=== PATIENT | male | born 1960 | race Caucasian/White ===

== ENCOUNTER 2016-06-17 12:27 | Emergency (ER) | payer MEDICARE | END 2016-06-17 14:05 | disposition home or self-care (01) | LOC: D.ER 12:27 | DX: K04.7 Periapical abscess without sinus (principal); K02.9 Dental caries, unspecified; K08.89 Other specified disorders of teeth and supporting structures; I10 Essential (primary) hypertension; I25.10 Atherosclerotic heart disease of native coronary artery without angina pectoris ==

== ENCOUNTER 2018-10-25 15:35 | Emergency (ER) | payer MEDICARE ==
[~2018-10-25] VITALS: Ht 180.3 cm; Wt 128.2 kg
[2018-10-25 15:43] VITALS: Ht 180.3 cm; Wt 128.2 kg
[2018-10-25] MEDS ORDERED: LANTUS INSULIN10 ML SC ×2 (15:44)
[2018-10-25] MEDS ORDERED: LISINOPRIL20 MG PO (15:45)
[2018-10-25] MEDS ORDERED: HUMULIN R100 U/ML SC (15:45)
[2018-10-25] MEDS ORDERED: EFFEXOR XR37.5 MG PO (15:46)
[2018-10-25] MEDS ORDERED: TERAZOSIN HCL2 MG PO (15:46)
[2018-10-25] MEDS ORDERED: TYLENOL W/CODEI1 TAB PO (17:42)
[2018-10-25] MEDS ORDERED: PENICILLIN V P500 MG PO (17:42)
== END 2018-10-25 16:30 | disposition home or self-care (01) ==
LOC: D.ER 15:35
DX: K08.89 Other specified disorders of teeth and supporting structures (principal)

== ENCOUNTER 2018-11-08 10:07 | Emergency (ER) | payer MEDICARE, MEDICAID ==
[~2018-11-08] VITALS: Ht 180.3 cm; Wt 127.3 kg
[~2018-11-08 10:07] MED LIST: EFFEXOR XR37.5 MG PO; HUMULIN R100 U/ML SC; LANTUS INSULIN10 ML SC; LISINOPRIL20 MG PO; PENICILLIN V P500 MG PO; TERAZOSIN HCL2 MG PO; TYLENOL W/CODEI1 TAB PO
[2018-11-08 10:16] VITALS: Ht 180.3 cm; Wt 127.3 kg
[2018-11-08] MEDS ORDERED: LANTUS SOL100 UNIT/1 SC (11:15)
[2018-11-08] MEDS ORDERED: NEURONTIN800 MG PO (11:15)
[2018-11-08] MEDS ORDERED: MINIPRESS 5 MG C5 MG PO (11:15)
[2018-11-08] MEDS ORDERED: NORVASC10 MG PO (11:15)
[2018-11-08 11:23] VITALS: BP 175/92
== END 2018-11-08 11:25 | disposition home or self-care (01) ==
LOC: D.ER 10:07
DX: Z76.0 Encounter for issue of repeat prescription (principal)

== ENCOUNTER 2018-12-11 14:31 | Observation (INO) | payer MEDICARE, MEDICAID ==
[~2018-12-11] VITALS: Ht 180.3 cm; Wt 132.0 kg
[~2018-12-11 14:31] MED LIST changes: +LANTUS SOL100 UNIT/1 SC; +MINIPRESS 5 MG C5 MG PO; +NEURONTIN800 MG PO; +NORVASC10 MG PO
--- NOTE | 2018-12-11 15:02 | NUR ---
[facility]S TRAUMA BAND #[id number]
--- NOTE | 2018-12-11 15:05 | NUR ---
PT HAVING TROUBLE BREATHING LYING ON BACK. STATES HE HAS NOT SLEPT IN 4 DAYS.
--- NOTE | 2018-12-11 15:26 | NUR ---
REGIONAL FACILITIES SPECIALIST CALLED FOR MENTAL HEALTH SCREENING
[2018-12-11 15:27] LABS: BASOPHILS 0.4 % (0-2); EOSINOPHILS 3.2 % (0-7); HEMATOCRIT 30.5 % (42.0-54.0); HEMOGLOBIN 9.9 g/dL (13.5-17.5); IMMATURE GRANULOCYTES 0.4 % (0-5); LYMPHOCYTES 16.1 % (15-50); MCHC 32.5 g/dL (31.0-37.0); MCV 83.1 fL (80.0-100.0); MEAN PLATELET VOLUME 9.4 fL (7.4-10.4); MONOCYTES 7.5 % (2-11); NEUTROPHILS 72.4 % (40-80); RBC 3.67 10x6/uL (4.20-6.10); RDW 15.7 % (11.5-14.5); WBC 7.9 10x3/uL (4.8-10.8)
--- NOTE | 2018-12-11 15:34 | NUR ---
URINE SENT TO LAB
[2018-12-11 15:44] LABS: ALBUMIN 2.8 g/dL (3.4-5.0); ANION GAP 12.3 mmol/L (8-16); BILIRUBIN - TOTAL 0.45 mg/dL (0.2-1.3); CALCIUM 8.3 mg/dL (8.5-10.1); CARBON DIOXIDE 27.8 mmol/L (21.0-32.0); CREATININE - SERUM 1.7 mg/dL (0.6-1.3); POTASSIUM - SERUM 4.1 mmol/L (3.5-5.1); PROTEIN - SERUM 6.6 g/dL (6.4-8.2)
[2018-12-11 15:50] LABS: UDS - AMPHET NEGATIVE QUAL (NEGATIVE); UDS - BARB NEGATIVE QUAL (NEGATIVE); UDS - BENZO NEGATIVE QUAL (NEGATIVE); UDS - COCAINE NEGATIVE QUAL (NEGATIVE); UDS - OPIATE NEGATIVE QUAL (NEGATIVE); UDS - PCP NEGATIVE QUAL (NEGATIVE); UDS - THC POSITIVE QUAL (NEGATIVE)
[2018-12-11 15:54] LABS: PLATELET COUNT 146 10x3/uL (130-400)
[2018-12-11 16:01] VITALS: BP 181/74
[2018-12-11 16:31] VITALS: BP 188/99
--- NOTE | 2018-12-11 17:21 | NUR ---
DR REMY NOTIFIED AND SITTER ORDERED. SITTER AT BEDSIDE. NOTIFIED CHARGE NURSE AND ATTENDING IN REGARDS TO ASSESSMENT FINDINGS. RESOURCES GIVEN TO PT AND SAFETY PLAN INITIATED.
--- NOTE | 2018-12-11 17:50 | NUR ---
PT MOVED TO SAFE ROOM ED21 AFTER MENTAL HEALTH EVALUATION DEEMED THE PATIENT HIGH RISK FOR SUICIDE, DISPOSABLE SCRUBS WILL NOT FIT THE PATIENT SO HE WAS CHECKED FOR ANY BELONGINGS, HE HAS NONE, SHOES PLACED BEHIND THE NURSES DESK, RESPIRATIONS EVEN AND UNLABORED, PULSES EQUAL AND STRONG, FOOD TRAY ORDERED FOR PATIENT, SITTER AT BEDSIDE, WILL MONITOR.
--- NOTE | 2018-12-11 18:10 | NUR ---
PT WAS GIVEN A DINNER TRAY, HAS A CELL PHONE IN HIS BED WHICH WAS PLACED WITH HIS SHOES BEHIND THE NURSES STATION. DENIES OTHER NEEDS, WILL MONITOR.
[2018-12-11 18:56] VITALS: BP 202/94
[2018-12-11 20:28] LABS: APTT 27.8 SECONDS (22.8-39.4); PROTIME 12.7 SECONDS (11.6-15.0)
[2018-12-11 20:29] LABS: D-DIMER-QUANTITATIVE 2.72 ug/mLFEU (0.20-0.54)
[2018-12-11 21:02] LABS: CKMB 2.5 U/L (0.0-3.6); CREATINE KINASE 78 UL (21-232); PRO BNP 4222 pg/mL (0-125)
[2018-12-11 21:04] LABS: TROPONIN-I < 0.017 ng/mL (0.000-0.060)
--- NOTE | 2018-12-11 22:00 | NUR ---
PT C/O SOB. REPORTS HE HAS NOT TAKEN LASIX IN 9 DAYS. MD MADE AWARE CARDIAC WORK UP ORDERED PER VERBAL ORDERS.
[2018-12-12] VITALS (13 sets, daily range): BP systolic 146–193; BP diastolic 77–109; Ht 180.3 cm; Wt 132.0 kg
--- NOTE | 2018-12-12 | NUR ---
PT C/O OF INCREASED ANXIETY. SCREAMING AND CUSSING AT NURSING STAFF.
[2018-12-12 04:22] LABS: BASOPHILS 0.3 % (0-2); HEMATOCRIT 34.7 % (42.0-54.0); HEMOGLOBIN 11.1 g/dL (13.5-17.5); IMMATURE GRANULOCYTES 0.3 % (0-5); LYMPHOCYTES 9.4 % (15-50); MCH 26.6 pg (26.0-34.0); MCV 83.2 fL (80.0-100.0); MEAN PLATELET VOLUME 9.8 fL (7.4-10.4); RBC 4.17 10x6/uL (4.20-6.10); RDW 15.8 % (11.5-14.5)
[2018-12-12 04:29] LABS: PLATELET COUNT 197 10x3/uL (130-400); WBC 12.1 10x3/uL (4.8-10.8)
[2018-12-12 04:49] LABS: ALKALINE PHOSPHATASE 101 U/L (46-116); ALT (SGPT) 19 U/L (10-68); BILIRUBIN - TOTAL 0.75 mg/dL (0.2-1.3); CALCIUM 8.9 mg/dL (8.5-10.1); CARBON DIOXIDE 34.1 mmol/L (21.0-32.0); CHLORIDE - SERUM 102 mmol/L (98-107); CKMB 1.9 U/L (0.0-3.6); CREATINE KINASE 69 UL (21-232); CREATININE - SERUM 1.7 mg/dL (0.6-1.3); GLUCOSE 184 mg/dL (74-106); MAGNESIUM - SERUM 1.8 mg/dL (1.8-2.4); PHOSPHOROUS 3.1 mg/dL (2.5-4.9); POTASSIUM - SERUM 3.7 mmol/L (3.5-5.1); PROTEIN - SERUM 7.1 g/dL (6.4-8.2); SODIUM 141 mmol/L (136-145); eGFR NON AFRICAN AMERICAN 44 mL/min (90-120)
[2018-12-12 04:52] LABS: CALC OSMOLALITY 286 mosm/kg (275-300); TROPONIN-I < 0.017 ng/mL (0.000-0.060); UREA NITROGEN 16 mg/dL (7-18)
--- NOTE | 2018-12-12 07:47 | NUR ---
0700 ARRIVED FROM ER VIA STRETCHER ASSESSMENT COMPLETE, SCABS NOTED TO BRIDGE OF NOSE, GONZALEZ KNEES, FOREHEAD AND MID CHEST AREA. AWAKE ALERT ORIENTED. SITTER REMAINS AT BEDSIDE, ONE ON ONE FOR SUICIDISL IDEALATIONS
--- NOTE | 2018-12-12 07:51 | NUR ---
0715 VOIDED 300ML CLEAR YELLOW URINAL USING URINAL
--- NOTE | 2018-12-12 07:51 | NUR ---
3400 VACUUM APPLICATOR OPERATOR FOR DR GRAMAJO AT BEDSIDE PERFORMING ASSESSMENT
--- NOTE | 2018-12-12 09:01 | NUR ---
0800 VOIDED 300ML URINE
--- NOTE | 2018-12-12 09:02 | NUR ---
0900 RESTING QUIETLY REPOSITIONED SELF IN BED
[2018-12-12 09:33] LABS: % SATURATION 9 % (15-55); IRON 31 ug/dl (35-150); TOTAL IRON BIND CAPACITY 326 ug/dl (260-445); UNSAT IRON BIND CAPACITY 295 ug/dl (150-375)
--- NOTE | 2018-12-12 09:58 | NUR ---
1000 EKG COMPLETEED BY RT
--- NOTE | 2018-12-12 10:02 | NUR ---
1001 URINE SPECIMEN COLLECTED AND SENT TO LAB
--- NOTE | 2018-12-12 10:04 | NUR ---
3871 FACE SHEET AND COPY OF ORDER FAXED TO [facility] FOR [facility]YC CONSULT FOR DR REMY
--- NOTE | 2018-12-12 10:34 | NUR ---
1035 CARDIO-NEURO TECH AT BEDSIDE TO DO ECHO
[2018-12-12 10:55] LABS: APPEARANCE CLEAR (CLEAR); BILIRUBIN NEGATIVE (NEGATIVE); COLOR YELLOW (YELLOW); GLUCOSE NEGATIVE (NEGATIVE); KETONE NEGATIVE (NEGATIVE); NITRITE NEGATIVE (NEGATIVE); PROTEIN NEGATIVE (NEGATIVE); SPECIFIC GRAVITY 1.005 (1.005-1.020); UROBILINOGEN NORMAL (NORMAL)
[2018-12-12 11:45] LABS: CKMB 1.4 U/L (0.0-3.6); CREATINE KINASE 127 UL (21-232)
[2018-12-12 11:46] LABS: TROPONIN-I < 0.017 ng/mL (0.000-0.060)
--- NOTE | 2018-12-12 13:55 | NUR ---
1200 DR GRAMAJO ROUNDING ON PATIENT
--- NOTE | 2018-12-12 13:56 | NUR ---
1340 C/O GENERAL PAIN APAP 650MG PO GIVEN
--- NOTE | 2018-12-12 13:57 | NUR ---
1709 TRANSFER ORDERS WRITTEN BY DR GRAMAJO
--- NOTE | 2018-12-12 15:17 | NUR ---
1517 PATIENT REFUSED LUNG SCAN
--- NOTE | 2018-12-12 15:21 | NUR ---
PT STILLS COMPLAINS OF DEPRESSION AND BEING VERY TIRED. FLAT AFFECT WITH NO EYE CONTACT. PT HAS A HX OF BIPOLAR AND HAS BEEN OFF OF HIS MEDICATIONS FOR "A LONG TIME". PT DENIES SI AT THIS TIME. SITTER AT BEDSIDE.
--- NOTE | 2018-12-12 15:23 | NUR ---
PATIENT REFUSED THE V/Q SCAN AND STATED NOTHING IS WRONG WITH HIS LUNGS AT 1521 ON 12/12/18. EXAM IS CANCELLED.
--- NOTE | 2018-12-12 17:11 | NUR ---
1710 DR REMY AT BEDSIDE CONTINUE 1:1 SITTER PLAN FOR INPATIENT CARE PATIENT REQUESTS TO GO BACK TO [facility]. PSYC WILL PUT NOTE IN CHART
[2018-12-12 17:40] LABS: CKMB 1.6 U/L (0.0-3.6); CREATINE KINASE 51 UL (21-232)
[2018-12-12 17:46] LABS: TROPONIN-I < 0.017 ng/mL (0.000-0.060)
--- NOTE | 2018-12-12 18:05 | NUR ---
1800 TRANSFERRED VIA W/C TO ROOM 2140 SITTER REMAINS AT BEDSIDE
--- NOTE | 2018-12-12 18:05 | NUR ---
1730 CALLED REPORT TO DONALD ON MED II
--- NOTE | 2018-12-12 18:06 | NUR ---
0245 DINNER TRAY SERVED APPETITE GOOD
--- NOTE | 2018-12-12 18:26 | NUR ---
RECEIVED PT FROM ICU. REQUESTED MEDICATION FOR ANXIETY, PT HAS NONE ORDERED. REQUIRES 1:1 CARE, ICU NURSE IN ROOM WITH PT. CALLED [facility], WAITING FOR RETURN CALL.
--- NOTE | 2018-12-12 19:47 | MORECARE ---
CASE MANAGEMENT DISCHARGE SUMMARY PATIENT: ZAY VALVERDE UNIT: [id number] ADM DATE: 12/11/18 AGE: 58 : 60 SEX: M ROOM/BED: D.2140 AUTHOR: SHEYLA MAY PHYSICIAN: REFERRING PHYSICIAN: KAYLA GRAMAJO MD DATE OF SERVICE: 12/12/18 Discharge Plan Patient Name: ZAY VALVERDE [facility] [facility] 1960 Planned Disposition: Home Anticipated Discharge Date: Discharge Date: Expected LOS: Initial Reviewer: [email or web address] Initial Review Date: 12/11/2018 Generated: 12/12/18 8:47 pm DCPIA - Discharge Planning Initial Assessment Updated by [email or web address]: Sailaja Gaxiola on 12/12/18 7:46 pm * Is the patient Alert and Oriented? Yes * How many steps to enter\exit or inside your home? * PCP DR HENSLEY * Pharmacy [facility] * Preadmission Environment Home Alone * ADLs Independent * Equipment None * List name and contact numbers for known caregivers / representatives who currently or will assist patient after discharge: NO CONTACT GIVEN * Verbal permission to speak to the caregivers and representatives has been obtained from the patient. N/A * Community resources currently utilized None * Additional services required to return to the preadmission environment? No * Can the patient safely return to the preadmission environment? Yes * Has this patient been hospitalized within the prior 30 days at any hospital? No Patient Name: ZAY VALVERDE Page [id number] at 1947 All edits/amendments must be made on the electronic document DICTATION DATE: 12/12/181946 SENIOR PRODUCT DEVELOPMENT MANAGER: TRISH 12/12/181946 RPT#: [id number] DC DATE: STATUS: ADM IN [facility] [address] [place] [address] END OF REPORT
--- NOTE | 2018-12-12 19:54 | MORECARE ---
CASE MANAGEMENT DISCHARGE SUMMARY PATIENT: ZAY VALVERDE UNIT: [id number] ADM DATE: 12/11/18 AGE: 58 : 60 SEX: M ROOM/BED: D.2140 AUTHOR: LALO,DOC PHYSICIAN: REFERRING PHYSICIAN: KAYLA GRAMAJO MD DATE OF SERVICE: 12/12/18 Discharge Plan Patient Name: ZAY VALVERDE Facility: [facility]:[place] : 1960 Planned Disposition: Home Anticipated Discharge Date: Discharge Date: Expected LOS: Initial Reviewer: [email or web address] Initial Review Date: 12/11/2018 Generated: 12/12/18 8:54 pm Comments DCP- Discharge Planning Updated by [email or web address]: Sailaja Gaxiola on 12/12/18 6:[address] Patient Name: ZAY VALVERDE Admission Status: ER Accout number: [id number] Admission Date: 12-11-2018 : 1960 Admission Diagnosis: Attending: KAYLA GRAMAJO Current LOS: 1 Anticipated DC Date: Planned Disposition: Home Primary Insurance: [facility] MEDICARE SOLUTIONS Discharge Planning Comments: CM met with patient at bedside after explaining CM role and obtaining verbal consent. Patient lives at home alone where he is independent with his care and plans to return there upon discharge. Patient feels this would be a safe discharge. CM discussed availability / needs of home health and medical equipment. Patient denies any discharge needs at this time. Patient states he will have transportation home upon discharge. CM will continue to follow and assist as needed with discharge planning / needs. Vest Presser: Sailaja Gaxiola DCPIA - Discharge Planning Initial Assessment Updated by [email or web address]: Sailaja Gaxiola on 12/12/18 7:46 pm * Is the patient Alert and Oriented? Yes * How many steps to enter\exit or inside your home? * PCP DR HENSLEY * Pharmacy [facility] * Preadmission Environment Home Alone * ADLs Independent * Equipment None * List name and contact numbers for known caregivers / representatives who currently or will assist patient after discharge: NO CONTACT GIVEN * Verbal permission to speak to the caregivers and representatives has been obtained from the patient. N/A * Community resources currently utilized None * Additional services required to return to the preadmission environment? No * Can the patient safely return to the preadmission environment? Yes * Has this patient been hospitalized within the prior 30 days at any hospital? No Last DP export: 12/12/18 6:47 p Patient Name: ZAY VALVERDE Page [id number] at 1953 All edits/amendments must be made on the electronic document DICTATION DATE: 12/12/181953 PROCUREMENT TECHNICIAN: TRISH 12/12/181953 RPT#: [id number] DC DATE: STATUS: ADM IN [facility] [address] [place] [address] END OF REPORT
--- NOTE | 2018-12-12 21:30 | NUR ---
PT VISIBLY UPSET. YELLING AND CURSING AT NURSING STAFF. UNABLE TO REDIRECT OR CALM PT DOWN. SECURITY PRESENT AT BEDSIDE. ORDER GIVEN FOR ONE TIME DOSE OF ATIVAN 1MG IV PER ORDER. PT SCREAMING THAT HE WANTS TO LEAVE THE FACILITY. NOTIFIED DR. REMY ABOUT PT OUTBURST AND BEHAVIOR FOR FURTHER INSTRUCTIONS. GIVEN ORDERS FOR HALDOL 10MG IM Q4H PRN AGITATION AND ATIVAN 2MG IM Q4H PRN AGITATION. PT WILL REMAIN ON SUICIDE PRECAUTIONS WITH SITTER AT BEDSIDE. BED IN LOWEST POSITION. SIDE RAILS X2. CALL LIGHT IN REACH. WILL CPOC.
[2018-12-13] VITALS: BP 185/69
--- NOTE | 2018-12-13 00:30 | NUR ---
PT FOUND YELLING AND CURSING AT NURSING STAFF AGAIN. CODE MUSCLE CALLED, FIVE MALE NURSES PRESENT AT BEDSIDE, SECURITY PRESENT, SITTER PRESENT. PT CONSENTED TO HALDOL 10MG IM AND ATIVAN 2MG IM PER PRN ORDER. TECHNICAL SOLUTIONS CONSULTANT NOTIFIED, NUTRITION REPRESENTATIVE AWARE. BED IN LOWEST POSITION. CALL LIGHT IN REACH. WILL CONTINUE TO MONITOR.
--- NOTE | 2018-12-13 03:19 | NUR ---
PT RESTING QUIETLY IN BED. RR EVEN AND UNLABORED. NO S/S OF DISTRESS NOTED. SITTER PRESENT. WILL CPOC.
--- NOTE | 2018-12-13 07:05 | NUR ---
REPORT RECEIVED. HE IS ASLEEP AT THIS TIME WITH RESP EVEN WITHOUT LABOR. SITTER OUTSIDE OF ROOM WITHIN VISUAL OF HIM.
--- NOTE | 2018-12-13 09:41 | MORECARE ---
CASE MANAGEMENT DISCHARGE SUMMARY PATIENT: ZAY VALVERDE UNIT: [id number] ADM DATE: 12/11/18 AGE: 58 : 60 SEX: M ROOM/BED: D.2140 AUTHOR: LALO,DOC PHYSICIAN: REFERRING PHYSICIAN: KAYLA GRAMAJO MD DATE OF SERVICE: 12/13/18 Discharge Plan Patient Name: ZAY VALVERDE Facility: [facility]:[place] : 1960 Planned Disposition: Inpatient Rehab Anticipated Discharge Date: Discharge Date: Expected LOS: Initial Reviewer: [email or web address] Initial Review Date: 12/11/2018 Generated: 12/13/18 10:41 am Comments DCP- Discharge Planning Updated by [email or web address]: Sailaja Gaxiola on 12/12/18 6:[address] Patient Name: ZAY VALVERDE Admission Status: ER Accout number: [id number] Admission Date: 12-11-2018 : 1960 Admission Diagnosis: Attending: KAYLA GRAMAJO Current LOS: 1 Anticipated DC Date: Planned Disposition: Home Primary Insurance: [facility] MEDICARE SOLUTIONS Discharge Planning Comments: CM met with patient at bedside after explaining CM role and obtaining verbal consent. Patient lives at home alone where he is independent with his care and plans to return there upon discharge. Patient feels this would be a safe discharge. CM discussed availability / needs of home health and medical equipment. Patient denies any discharge needs at this time. Patient states he will have transportation home upon discharge. CM will continue to follow and assist as needed with discharge planning / needs. Director Of Promotions: Sailaja Gaxiola DCPIA - Discharge Planning Initial Assessment Updated by [email or web address]: Sailaja Gaxiola on 12/12/18 7:46 pm * Is the patient Alert and Oriented? Yes * How many steps to enter\exit or inside your home? * PCP DR HENSLEY * Pharmacy [facility] * Preadmission Environment Home Alone * ADLs Independent * Equipment None * List name and contact numbers for known caregivers / representatives who currently or will assist patient after discharge: NO CONTACT GIVEN * Verbal permission to speak to the caregivers and representatives has been obtained from the patient. N/A * Community resources currently utilized None * Additional services required to return to the preadmission environment? No * Can the patient safely return to the preadmission environment? Yes * Has this patient been hospitalized within the prior 30 days at any hospital? No Last DP export: 12/12/18 6:54 p Patient Name: ZAY VALVERDE Page [id number] at 0941 All edits/amendments must be made on the electronic document DICTATION DATE: 12/13/18939 ACCOUNTING SYSTEM EXPERT: TRISH 12/13/18939 RPT#: [id number] DC DATE: STATUS: ADM IN [facility] [address] [place] [address] END OF REPORT
--- NOTE | 2018-12-13 09:47 | MORECARE ---
CASE MANAGEMENT DISCHARGE SUMMARY PATIENT: ZAY VALVERDE UNIT: [id number] ADM DATE: 12/11/18 AGE: 58 : 60 SEX: M ROOM/BED: D.2140 AUTHOR: LALO,DOC PHYSICIAN: REFERRING PHYSICIAN: KAYLA GRAMAJO MD DATE OF SERVICE: 12/13/18 Discharge Plan Patient Name: ZAY VALVERDE Facility: [facility]:[place] : 1960 Planned Disposition: Inpatient Rehab Anticipated Discharge Date: Discharge Date: Expected LOS: Initial Reviewer: [email or web address] Initial Review Date: 12/11/2018 Generated: 12/13/18 10:47 am Comments DCP- Discharge Planning Updated by [email or web address]: Sailaja Gaxiola on 12/13/18 8:[address] Patient Name: ZAY VALVERDE Admission Status: ER Accout number: [id number] Admission Date: 12-11-2018 : 1960 Admission Diagnosis: Attending: KAYLA GRAMAJO Current LOS: 1 Anticipated DC Date: Planned Disposition: Home Primary Insurance: [facility] MEDICARE SOLUTIONS Discharge Planning Comments: CM met with patient at bedside after explaining CM role and obtaining verbal consent. Patient lives at home alone where he is independent with his care and plans to return there upon discharge. Patient feels this would be a safe discharge. CM discussed availability / needs of home health and medical equipment. Patient denies any discharge needs at this time. Patient states he will have transportation home upon discharge. CM will continue to follow and assist as needed with discharge planning / needs. Precision Grinder: Sailaja Gaxiola Appended by Sailaja Gaxiola on 12/13/2018 9:41 CDT: Update to D/C plan: per recommendations of psych the plan is for inpatient psych placement. DCPIA - Discharge Planning Initial Assessment Updated by [email or web address]: Sailaja Gaxiola on 12/12/18 7:46 pm * Is the patient Alert and Oriented? Yes * How many steps to enter\exit or inside your home? * PCP DR HENSLEY * Pharmacy [facility] * Preadmission Environment Home Alone * ADLs Independent * Equipment None * List name and contact numbers for known caregivers / representatives who currently or will assist patient after discharge: NO CONTACT GIVEN * Verbal permission to speak to the caregivers and representatives has been obtained from the patient. N/A * Community resources currently utilized None * Additional services required to return to the preadmission environment? No * Can the patient safely return to the preadmission environment? Yes * Has this patient been hospitalized within the prior 30 days at any hospital? No Last DP export: 12/13/18 8:41 a Patient Name: ZAY VALVERDE Page 35451 at 0947 All edits/amendments must be made on the electronic document DICTATION DATE: 12/13/18946 MANAGER OF CHANGE: TRISH 12/13/18946 RPT#: [id number] DC DATE: STATUS: ADM IN [facility] [address] [place] [address] END OF REPORT
--- NOTE | 2018-12-13 12:20 | MORECARE ---
CASE MANAGEMENT DISCHARGE SUMMARY PATIENT: ZAY VALVERDE UNIT: [id number] ADM DATE: 12/11/18 AGE: 58 : 60 SEX: M ROOM/BED: D.2140 AUTHOR: LALO,DOC PHYSICIAN: REFERRING PHYSICIAN: KAYLA GRAMAJO MD DATE OF SERVICE: 12/13/18 Discharge Plan Patient Name: ZAY VALVERDE Facility: [facility]:[place] : 1960 Planned Disposition: Inpatient Psych Facility Anticipated Discharge Date: 12/13/18 Discharge Date: Expected LOS: 2 Initial Reviewer: [email or web address] Initial Review Date: 12/11/2018 Generated: 12/13/18 1:20 pm Comments DCP- Discharge Planning Updated by [email or web address]: Sailaja Gaxiola on 12/13/18 8:[address] Patient Name: ZAY VALVERDE Admission Status: ER Accout number: [id number] Admission Date: 12-11-2018 : 1960 Admission Diagnosis: Attending: KAYLA GRAMAJO Current LOS: 1 Anticipated DC Date: Planned Disposition: Home Primary Insurance: [facility] MEDICARE SOLUTIONS Discharge Planning Comments: CM met with patient at bedside after explaining CM role and obtaining verbal consent. Patient lives at home alone where he is independent with his care and plans to return there upon discharge. Patient feels this would be a safe discharge. CM discussed availability / needs of home health and medical equipment. Patient denies any discharge needs at this time. Patient states he will have transportation home upon discharge. CM will continue to follow and assist as needed with discharge planning / needs. Information Lead: Sailaja Gaxiola Appended by Sailaja Gaxiola on 12/13/2018 9:41 CDT: Update to D/C plan: per recommendations of psych the plan is for inpatient psych placement. DCPIA - Discharge Planning Initial Assessment Updated by [email or web address]: Sailaja Gaxiola on 12/12/18 7:46 pm * Is the patient Alert and Oriented? Yes * How many steps to enter\exit or inside your home? * PCP DR HENSLEY * Pharmacy [facility] * Preadmission Environment Home Alone * ADLs Independent * Equipment None * List name and contact numbers for known caregivers / representatives who currently or will assist patient after discharge: NO CONTACT GIVEN * Verbal permission to speak to the caregivers and representatives has been obtained from the patient. N/A * Community resources currently utilized None * Additional services required to return to the preadmission environment? No * Can the patient safely return to the preadmission environment? Yes * Has this patient been hospitalized within the prior 30 days at any hospital? No External Providers External Provider: [facility] Next Contact Date: 12/13/2018 Service Request Date: Service Type: Resolution: Reviewer: Comments: Last DP export: 12/13/18 8:47 a Patient Name: ZAY VALVERDE Page [phone] at 1220 All edits/amendments must be made on the electronic document DICTATION DATE: 12/13/18 1220 SUBSYSTEMS ENGINEER: TRISH 12/13/18 1220 RPT#: [id number] DC DATE: STATUS: ADM IN [facility] [address] [place] [address] END OF REPORT
--- NOTE | 2018-12-13 12:36 | MORECARE ---
CASE MANAGEMENT DISCHARGE SUMMARY PATIENT: ZAY VALVERDE UNIT: [id number] ADM DATE: 12/11/18 AGE: 58 : 60 SEX: M ROOM/BED: D.2140 AUTHOR: LALO,DOC PHYSICIAN: REFERRING PHYSICIAN: KAYLA GRAMAJO MD DATE OF SERVICE: 12/13/18 Discharge Plan Patient Name: ZAY VALVERDE Facility: [facility]:[place] : 1960 Planned Disposition: Inpatient Psych Facility Anticipated Discharge Date: 12/13/18 Discharge Date: Expected LOS: 2 Initial Reviewer: [email or web address] Initial Review Date: 12/11/2018 Generated: 12/13/18 1:35 pm Comments DCP- Discharge Planning Updated by [email or web address]: Naldo Villa on 12/13/18 11:[address] Patient Name: ZAY VALVERDE Encounter No: [id number] : 1960 Primary Insurance: [facility] MEDICARE SOLUTIONS Anticipated DC Date: 12-13-2018 Planned Disposition: Inpatient Psych Facility External Planned Provider: [facility] DCP follow-up note: CM RECEIVED ORDER FOR INPATIENT PSYCHIATRIC CARE PLACEMENT. CM MET WITH PT IN ROOM. CM ATTEMPTED TO DISCUSS DISCHARGE PLANNING WITH PT. PT WOULD RESPOND TO CM BUT WOULD NOT OPEN HIS EYES. PT REPORTS HE WILL GO TO INPATIENT PSYCHIATRIC TREATMENT AND WOULD PREFER TO GO BACK TO [facility] IF POSSIBLE HE WAS THERE RECENTLY. CM ATTEMPTED TO ASK QUESTIONS REGARDING PT'S SUIDCIDAL IDEATIONS, PLANS, PAST ATTEMPTS AND HISTORY, PT WOULD NOT ANSWER. CM ATTEMPTED TO PROVIDE PT WITH IMPORTANT MESSAGE FROM MEDICARE AND EXPLAINED THE MESSAGE PT WOULD NOT OPEN EYES, TAKE PAPER FROM CM OR RESPOND. CM LEFT MESSAGE IN ROOM. CM CALLED [facility], , SPOKE TO ALLAN WHO TOOK REFERRAL INFORMATION AND STATES THEY WILL WORK ON PLACEMENT WHEN PACKET RECEIVED. CM FAXED REFERRAL PACKET TO [facility] AT [phone]. [facility] WORKING ON INPATIENT PSYCHATRIC FACILITY PLACEMENT. LAILA Parker DCP- Discharge Planning Updated by [email or web address]: Sailaja Gaxiola on 12/13/18 8:[address] Patient Name: ZAY VALVERDE Admission Status: ER Accout number: [id number] Admission Date: 12-11-2018 : 1960 Admission Diagnosis: Attending: KAYLA GRAMAJO Current LOS: 1 Anticipated DC Date: Planned Disposition: Home Primary Insurance: [facility] MEDICARE SOLUTIONS Discharge Planning Comments: CM met with patient at bedside after explaining CM role and obtaining verbal consent. Patient lives at home alone where he is independent with his care and plans to return there upon discharge. Patient feels this would be a safe discharge. CM discussed availability / needs of home health and medical equipment. Patient denies any discharge needs at this time. Patient states he will have transportation home upon discharge. CM will continue to follow and assist as needed with discharge planning / needs. Angle Shear Set Up Operator: Sailaja Gaxiola Appended by Sailaja Gaxiola on 12/13/2018 9:41 CDT: Update to D/C plan: per recommendations of psych the plan is for inpatient psych placement. DCPIA - Discharge Planning Initial Assessment Updated by [email or web address]: Sailaja Gaxiola on 12/12/18 7:46 pm * Is the patient Alert and Oriented? Yes * How many steps to enter\exit or inside your home? * PCP DR HENSLEY * Pharmacy [facility] * Preadmission Environment Home Alone * ADLs Independent * Equipment None * List name and contact numbers for known caregivers / representatives who currently or will assist patient after discharge: NO CONTACT GIVEN * Verbal permission to speak to the caregivers and representatives has been obtained from the patient. N/A * Community resources currently utilized None * Additional services required to return to the preadmission environment? No * Can the patient safely return to the preadmission environment? Yes * Has this patient been hospitalized within the prior 30 days at any hospital? No Coverage Notice Reviewer: [email or web address] Yamilka Villa Notice Issued Date-Time: 12/13/2018 10:55 Notice Type: IM Discharge Notice Notice Delivered To: Patient Relationship to Patient: Motorcycle [employer] Name: Delivery Method: HAND - Hand Delivered Tati Days: Prior Verbal Notification: Recipient Understood Notice: Yes Recipient Signature: Med Rec Note Co-signed by Attending: Coverage Notice Comment: REFUSED SIGNATURE Last DP export: 12/13/18 11:20 a Patient Name: ZAY VALVERDE Page [phone] at 1236 All edits/amendments must be made on the electronic document DICTATION DATE: 12/13/18 1235 SUPERVISOR ASSEMBLY AND PACKING: TRISH 12/13/18 1235 RPT#: [id number] DC DATE: STATUS: ADM IN [facility] [address] [place] [address] END OF REPORT
[2018-12-13 14:47] VITALS: BP 117/70
--- NOTE | 2018-12-13 15:02 | CN ---
PATIENT NAME:ZAY VALVERDE MEDICAL RECORD: [id number] : 60 LOCATION:D.M2 D.2140 ADMIT DATE: 12/11/18 ACCOUNT: [id number] CONSULTING PHYSICIAN: TAMARA REMY MD REFERRING PHYSICIAN: KAYLA GRAMAJO MD DATE OF CONSULTATION: 12/12/2018 Psychiatric Consultation IDENTIFYING DATA: The patient is 58 years old and he is admitted to the hospital secondary to manic symptoms. HISTORY OF PRESENT ILLNESS: The patient has not been taking his bipolar medicines. He has been significantly agitated and has been thinking about running into traffic or perhaps he actually did, I am not clear on that. At any rate, he is displaying very serious depressive symptoms and clear thoughts of wanting to harm himself, which are not as intense, but still presenting themselves intermittently. He has smoked some marijuana. His description of what he has done in the past month sound entirely consistent with panda and his longitudinal history sound consistent with bipolar disorder, a condition which he says he has been diagnosed with in the past. He also has hypertension, diabetes, congestive heart failure, hypertension, and COPD. MENTAL STATUS EXAMINATION: The patient is awake, alert and fully oriented. His mood is flat. His affect is constricted. Thought processes are circumstantial. Memory, concentration, and abstraction abilities are moderately impaired. He denies any current thoughts of harming himself or others and he denies psychotic symptoms. ASSESSMENT: Bipolar disorder. PLAN: The patient should be transferred to acute inpatient psychiatric care as soon as it is practical to do so. At this point, I am not going to start him on any psychoactive medications since I anticipate he will be transferred soon. He is not displaying evidence of agitation or dangerousness at this point and what he has already been given in the hospital is making him quite sleepy, probably because he has not slept much or at all in the past month and he is certainly willing to go to the hospital voluntarily. I would furthermore recommend he be continue with the sitter until that transfer can take place. TRANSINT:[id number] Voice Confirmation ID: [id number] DOCUMENT ID: [id number] TAMARA REMY MD at 1502 CC: [id number] DICTATION DATE: 12/12/18 1722 CAPTAIN FISHING VESSEL: 12/12/18 2335 ADM IN [facility] [address] [id number]
[2018-12-13] MEDS ORDERED: LASIX40 MG PO (16:42)
--- NOTE | 2018-12-13 16:45 | NUR ---
HE HAS BEEN ACCEPTED TO [facility] IN [place]. HE WAS EXPLAINED DISCHARGE PAPERS AND HE SIGNED THEM AND AMBULANCE TRANSFER FORM. HE HAS AGREED TO THIS TRANSFER. REPORT WAS CALLED TO [facility] AND THE DOCTOR ACCEPTING THERE IS DR CHURCH. MELBA REMAINS OUTSIDE OF ROOM. HE HAS BEEN COOPERATIVE TODAY. HE DOES STATE HE HAS BEEN DEPRESSED FOR A LONG TIME AND WANTS TO AND HAS THOUGHTS OF SUICUIDE
--- NOTE | 2018-12-13 19:05 | NUR ---
AMBULANCE IS HERE TO TRANSFER TO [facility]. HE IS ALERT WITH NO CHANGE IN CONDITION NOTED. SALINE LOCK D/C WITH CATH INTACT. HE OFFERS NO C/O
--- NOTE | 2018-12-14 07:15 | MORECARE ---
CASE MANAGEMENT DISCHARGE SUMMARY PATIENT: ZAY VALVERDE UNIT: [id number] ADM DATE: 12/11/18 AGE: 58 : 60 SEX: M ROOM/BED: D.2140 AUTHOR: LALO,DOC PHYSICIAN: REFERRING PHYSICIAN: KAYLA GRAMAJO MD DATE OF SERVICE: 12/14/18 Discharge Plan Patient Name: ZAY VALVERDE Facility: [facility]:[place] : 1960 Planned Disposition: Inpatient Psych Facility Anticipated Discharge Date: 12/13/18 Discharge Date: 12/13/2018 Expected LOS: 2 Initial Reviewer: [email or web address] Initial Review Date: 12/11/2018 Generated: 12/14/18 8:15 am Comments DCP- Discharge Planning Updated by [email or web address]: Naldo Villa on 12/13/18 11:[address] Patient Name: ZAY VALVERDE Encounter No: [id number] : 1960 Primary Insurance: [facility] [employer] Anticipated DC Date: 12-13-2018 Planned Disposition: Inpatient Psych Facility External Planned Provider: [facility] ACCEPTING [facility] DCP follow-up note: CM RECEIVED ORDER FOR INPATIENT PSYCHIATRIC CARE PLACEMENT. CM MET WITH PT IN ROOM. CM ATTEMPTED TO DISCUSS DISCHARGE PLANNING WITH PT. PT WOULD RESPOND TO CM BUT WOULD NOT OPEN HIS EYES. PT REPORTS HE WILL GO TO INPATIENT PSYCHIATRIC TREATMENT AND WOULD PREFER TO GO BACK TO [facility] IF POSSIBLE HE WAS THERE RECENTLY. CM ATTEMPTED TO ASK QUESTIONS REGARDING PT'S SUIDCIDAL IDEATIONS, PLANS, PAST ATTEMPTS AND HISTORY, PT WOULD NOT ANSWER. CM ATTEMPTED TO PROVIDE PT WITH IMPORTANT MESSAGE FROM MEDICARE AND EXPLAINED THE MESSAGE PT WOULD NOT OPEN EYES, TAKE PAPER FROM CM OR RESPOND. CM LEFT MESSAGE IN ROOM. CM CALLED [facility], , SPOKE TO ALLAN WHO TOOK REFERRAL INFORMATION AND STATES THEY WILL WORK ON PLACEMENT WHEN PACKET RECEIVED. CM FAXED REFERRAL PACKET TO TRANSFER CENTER AT [phone]. TRANSFER CENTER WORKING ON INPATIENT PSYCHATRIC FACILITY PLACEMENT. LAILA Parker DCP- Discharge Planning Updated by [id number]: Sailaja Gaxiola on 12/13/18 8:[address] Patient Name: ZAY VALVERDE Admission Status: ER Accout number: [id number] Admission Date: 12-11-2018 : 1960 Admission Diagnosis: Attending: KAYLA GRAMAJO Current LOS: 1 Anticipated DC Date: Planned Disposition: Home Primary Insurance: [facility] [employer] Discharge Planning Comments: CM met with patient at bedside after explaining CM role and obtaining verbal consent. Patient lives at home alone where he is independent with his care and plans to return there upon discharge. Patient feels this would be a safe discharge. CM discussed availability / needs of home health and medical equipment. Patient denies any discharge needs at this time. Patient states he will have transportation home upon discharge. CM will continue to follow and assist as needed with discharge planning / needs. Maintenance Helper Utility Engineer: Sailaja Gaxiola Appended by Sailaja Gaxiola on 12/13/2018 9:41 CDT: Update to D/C plan: per recommendations of psych the plan is for inpatient psych placement. DCPIA - Discharge Planning Initial Assessment Updated by [id number]: Sailaja Gaxiola on 12/12/18 7:46 pm * Is the patient Alert and Oriented? Yes * How many steps to enter\exit or inside your home? * PCP DR HENSLEY * Pharmacy [facility] * Preadmission Environment Home Alone * ADLs Independent * Equipment None * List name and contact numbers for known caregivers / representatives who currently or will assist patient after discharge: NO CONTACT GIVEN * Verbal permission to speak to the caregivers and representatives has been obtained from the patient. N/A * Community resources currently utilized None * Additional services required to return to the preadmission environment? No * Can the patient safely return to the preadmission environment? Yes * Has this patient been hospitalized within the prior 30 days at any hospital? No Coverage Notice Reviewer: [email or web address] Yamilka Villa Notice Issued Date-Time: 12/13/2018 10:55 Notice Type: IM Discharge Notice Notice Delivered To: Patient Relationship to Patient: Paid Internship Name: Delivery Method: HAND - Hand Delivered Tati Days: Prior Verbal Notification: Recipient Understood Notice: Yes Recipient Signature: Med Rec Note Co-signed by Attending: Coverage Notice Comment: REFUSED SIGNATURE Last DP export: 12/13/18 11:36 a Patient Name: ZAY VALVERDE Page [id number] at 0715 All edits/amendments must be made on the electronic document DICTATION DATE: 12/14/18714 PERSONAL LINES UNDERWRITER: TRISH 12/14/18714 RPT#: [id number] DC DATE:12/13/18 STATUS: DIS IN [facility] [address] [address] [place] [place] [address] END OF REPORT
--- NOTE | 2018-12-14 10:47 | EC ---
PATIENT:ZAY VALVERDE DATE OF SERVICE: 12/11/18 SEX: M MEDICAL RECORD: [id number] DATE OF : 60 LOCATION:D.M2 D.214 AGE OF PATIENT: 58 ADMISSION DATE: 12/11/18 REFERRING PHYSICIAN: INTERPRETING PHYSICIAN: WIN HERBERT MD ECHOCARDIOGRAM REPORT ECHO CHARGES 4 ECHO COMPLETE Date: 12/12/18 CLINICAL DIAGNOSIS: CHF, SOB ECHOCARDIOGRAPHIC MEASUREMENTS (adult normal given) AC root (d.<3.7cm) 3.1 cm LV Septum d (<1.2 cm> 0.8 cm Valve Excursion 1.6 cm LV Septum (systole) 0.9 cm Left Atria (s.<4.0cm> 3.7 cm LVPW d(<1.2cm) 1.0 cm RV (d.<2.3cm) 3.6 cm LVPW (sytole) 1.4 cm LV diastole(<5.6CM) 6.6 cm MV E-F(>70mm/sec) cm LV systole 5.8 cm LVOT Diameter 2.0 cm MV exc.(>10mm) cm Est.ejection fraction (50-75%) % DOPPLER: LVIT cm/sec A 102 cm/sec E 100 cm/sec LA cm/sec RVSP 17.4 mmHg LVOT 102 cm/sec AOP1/2T m/s Asc. Ao 134 cm/sec RVOT 81 cm/sec RA cm/sec PA 89 cm/sec AV Gradient Peak 7.1 mmHg AV Mean 4.0 mmHg AV Area 2.8 cm MV Gradient Peak 4.3 mmHg MV Mean 3.0 mmHg MV Area cm COMMENTS: Window Dresser: Telma KINNEY Inside Sales Trainer: 1 Dr. Herbert TAPE# PACS Pericardial Effusion N DATE OF SERVICE: 12/12/2018 PROCEDURE: Echocardiogram. FINDINGS: 1. Left ventricular chamber size is mildly dilated. Left ventricular systolic function is preserved at 45% to 50%. 2. Left atrium, right atrium and right ventricular chamber sizes are within normal limits. 3. Valvular structures have normal structure and motion. ECHOCARDIOGRAM REPORT [id number] ZAY VALVERDE 4. Doppler interrogation reveals mild mitral regurgitation, trace tricuspid regurgitation, no other valvular insufficiency or stenosis. Pulmonary systolic pressure is estimated at 17 mmHg. 5. No evidence of pericardial effusion or left ventricular thrombus. TRANSINT:[id number] Voice Confirmation ID: [id number] DOCUMENT ID: [id number] WIN HERBERT MD at 1047 CC: [id number] DICTATION DATE: 12/12/18 1235 ROOM SERVICE RUNNER: 12/12/18 1307 DIS IN 12/13/18 [place] [id number] [place] [id number]
--- NOTE | 2018-12-14 10:47 | CN ---
PATIENT NAME:ZAY VALVERDE MEDICAL RECORD: [id number] : 60 LOCATION:D.M2 D.2140 ADMIT DATE: 12/11/18 ACCOUNT: [id number] CONSULTING PHYSICIAN: WIN MEDINA MD REFERRING PHYSICIAN: KAYLA GRAMAJO MD DATE OF CONSULTATION: 12/12/2018 DATE OF SERVICE: 12/12/2018. DIAGNOSES: 1. Shortness of breath. 2. Hypertension. 3. Manic depressive. 4. Suicidal ideation. 5. Insulin-dependent diabetes. HISTORY OF PRESENT ILLNESS: Mr. Valverde presents with psychiatric issues and also complains of chest discomfort. He has no cardiac history, has a history of hypertension on multiple agents. He has had no chest pain or chest discomfort. EKG is with no ST-T changes. Troponin is normal. PHYSICAL EXAMINATION: CONSTITUTIONAL/GENERAL APPEARANCE: Well nourished, well developed, appears stated age. EYES: Lids and conjunctivae noninjected. No discharge. No pallor. ENT: Lips within normal limit. No cyanosis. No pallor. NECK: Carotid arteries, bilateral normal upstroke. No bruits. No thrills. No jugular venous pressure or distention. CERVICAL LYMPH NODES: Nontender. Nonenlarged. THYROID: Not enlarged. No nodules. CARDIOVASCULAR: Precordial exam, nondisplaced. No heaves or pericardial thrills. Rate and rhythm, regular. Heart sounds, normal S1, normal S2. No S3, no gallop, no rub. Systolic murmur, not heard. Diastolic murmur, not heard. RESPIRATORY: Respiratory effort, unlabored. Normal curvature. No thoracic deformity. No chest wall tenderness. Percussion, resonant. Auscultation, clear. No wheezes, no rales, no rhonchi. ABDOMEN: Soft, nondistended, nontender. No abdominal pain, no vomiting and normal appetite. MUSCULOSKELETAL: No joint tenderness, normal gait, normal tone. SKIN: Warm and dry. Echocardiogram was performed. This is overall normal. Normal ejection fraction, no significant valvular abnormalities. His chest discomfort is not secondary to congestive heart failure. It is not cardiac in etiology. No other cardiac workup or treatment is necessary at this time. TRANSINT:[id number] Voice Confirmation ID: [id number] DOCUMENT ID: [id number] CONSULT REPORT [id number] ZAY VALVERDE JEFFREY MD at 1047 CC: [id number] DICTATION DATE: 12/12/18 1537 RN ICU: 12/12/18 2149 DIS IN 12/13/18 [facility] [address] [place] [address]
== END 2018-12-13 19:05 | disposition home or self-care (01) ==
LOC: D.ER 14:31 → OBSVTIME 22:27 → D.ICU 22:27 → D.M2 22:27 → D.ER 22:27 → D.ICU 22:27 → D.M2 12-12 18:01 → OBSVTIME 01-11 22:27
PROVIDERS: Family Medicine; ADMIT Internal Medicine Nephrology; ATTEND Internal Medicine Nephrology
DX: I13.0 Hypertensive heart and chronic kidney disease with heart failure and stage 1 through stage 4 chronic kidney disease, or unspecified chronic kidney disease (principal); I50.31 Acute diastolic (congestive) heart failure; R45.851 Suicidal ideations; F17.213 Nicotine dependence, cigarettes, with withdrawal; I16.0 Hypertensive urgency; F31.9 Bipolar disorder, unspecified; I08.1 Rheumatic disorders of both mitral and tricuspid valves; D50.9 Iron deficiency anemia, unspecified; E78.5 Hyperlipidemia, unspecified; J44.9 Chronic obstructive pulmonary disease, unspecified; E11.22 Type 2 diabetes mellitus with diabetic chronic kidney disease; N18.3 Chronic kidney disease, stage 3 (moderate); E66.01 Morbid (severe) obesity due to excess calories; Z68.37 Body mass index [BMI] 37.0-37.9, adult; S13.9XXA Sprain of joints and ligaments of unspecified parts of neck, initial encounter; W06.XXXA Fall from bed, initial encounter; S23.3XXA Sprain of ligaments of thoracic spine, initial encounter; S09.90XA Unspecified injury of head, initial encounter

== ENCOUNTER 2018-12-28 10:28 | Observation (INO) | payer MEDICARE, MEDICAID ==
[~2018-12-28] VITALS: Ht 180.3 cm; Wt 127.3 kg
[~2018-12-28 10:28] MED LIST changes: +LASIX40 MG PO
[2018-12-28 11:19] LABS: BASOPHILS 0.4 % (0-2); EOSINOPHILS 0.7 % (0-7); HEMATOCRIT 34.1 % (42.0-54.0); HEMOGLOBIN 11.5 g/dL (13.5-17.5); IMMATURE GRANULOCYTES 0.4 % (0-5); LYMPHOCYTES 9.7 % (15-50); MCH 27.4 pg (26.0-34.0); MCHC 33.7 g/dL (31.0-37.0); MCV 81.4 fL (80.0-100.0); MEAN PLATELET VOLUME 9.8 fL (7.4-10.4); MONOCYTES 4.9 % (2-11); NEUTROPHILS 83.9 % (40-80); PLATELET COUNT 228 10x3/uL (130-400); RBC 4.19 10x6/uL (4.20-6.10); RDW 14.8 % (11.5-14.5); WBC 7.6 10x3/uL (4.8-10.8)
--- NOTE | 2018-12-28 11:25 | NUR ---
AFTER GIVING PT AN AMP OF D50 PT BECAME MORE ALERT AND ORIENTED. PT REQUESTING COFFEE.
[2018-12-28 11:33] LABS: KETONE - SERUM NEGATIVE (NEGATIVE)
[2018-12-28 11:43] LABS: ALBUMIN 3.2 g/dL (3.4-5.0); ALKALINE PHOSPHATASE 101 U/L (46-116); ALT (SGPT) 46 U/L (10-68); BILIRUBIN - TOTAL 0.35 mg/dL (0.2-1.3); CALC OSMOLALITY 268 mosm/kg (275-300); CALCIUM 8.3 mg/dL (8.5-10.1); CARBON DIOXIDE 23.6 mmol/L (21.0-32.0); CHLORIDE - SERUM 100 mmol/L (98-107); CREATININE - SERUM 1.5 mg/dL (0.6-1.3); GLUCOSE 124 mg/dL (74-106); PROTEIN - SERUM 6.6 g/dL (6.4-8.2); SODIUM 134 mmol/L (136-145); UREA NITROGEN 13 mg/dL (7-18); eGFR NON AFRICAN AMERICAN 51 mL/min (90-120)
[2018-12-28 11:55] LABS: APPEARANCE CLEAR (CLEAR); BACTERIA FEW /hpf (NONE SEEN); BILIRUBIN NEGATIVE (NEGATIVE); COLOR YELLOW (YELLOW); EPITHELIAL CELLS OCC /hpf (0-5); GLUCOSE 250 mg/dL (NEGATIVE); KETONE NEGATIVE (NEGATIVE); MUCUS <1+ /lpf (NONE SEEN); NITRITE NEGATIVE (NEGATIVE); PROTEIN 1+ mg/dL (NEGATIVE); RED CELLS - URINE 0-5 /hpf (0-5); SPECIFIC GRAVITY 1.015 (1.005-1.020); UROBILINOGEN NORMAL (NORMAL); WHITE CELLS - URINE RARE /hpf (0-5)
--- NOTE | 2018-12-28 14:00 | NUR ---
PT REQUESTING FOOD, EDP PLACED ORDERS FOR DIET. NURSE CALLED DIETARY FOR MEAL TRAY.
--- NOTE | 2018-12-28 14:30 | NUR ---
PT GIVEN MEAL TRAY OF SANDWICH AND CHIPS.
[2018-12-28 14:39] VITALS: BP 211/99
--- NOTE | 2018-12-28 15:00 | NUR ---
NURSE CHECKED PT BS, BS WAS 58, EDP NOTIFIED, EDP STATES TO INCREASE D10 TO 150/HR.
[2018-12-28 15:08] VITALS: BP 194/60
[2018-12-28 15:20] VITALS: BP 177/84
--- NOTE | 2018-12-28 15:54 | NUR ---
ASSESSMENT COMPLETE PT AROUSES TO SPEECH WILL ANSWER QUESTIONS THEN GO BACK TO SNORING RESP ORIENTED X4 WHEN ASK IF HE EVER THOUGHT ABOUT KILLING HIMSELF STATED "OH GOD NO" ASK PT IF HE WAS TRYING TO KILL HIMSELF WHEN HE TOOK THE INSULIN HE STATED :"NO I JUST DIDN'T TAKE IN ENOUGH CALORIES TO KEEP MY SUGAR UP" WILL CONTINUE TO MONITOR
[2018-12-28 16:25] VITALS: Ht 180.3 cm; Wt 127.3 kg
--- NOTE | 2018-12-28 16:27 | NUR ---
PT TOO LETHARGIC AT THIS TIME AND CAN NOT WAKE UP TO ANSWER QUESTIONS FOR HX OR MED REC. BS 195. D10 INFUSING AT 100 THROUGH RIGHT FA IV. WILL CONTINUE TO MONITOR.
[2018-12-28] MEDS ORDERED: AMBIEN10 MG PO (17:28)
--- NOTE | 2018-12-28 17:40 | NUR ---
PT AWAKE AND ALERT AND ORIENTED. EATING DINNER TRAY. GOT PT A URINAL. MED REC AND HX COMPLETED.
--- NOTE | 2018-12-28 18:48 | NUR ---
BS IS 257.
--- NOTE | 2018-12-28 18:53 | NUR ---
RODERICK WILSON STATES TO CHECK PT'S BS Q2H BUT HE STATES HE WILL PUT IN ORDERS. HE ALSO STATED PT MAY NOT NEED TO BE Q2H BS ALL NIGHT. I VERBALIZED UNDERSTANDING.
--- NOTE | 2018-12-29 04:00 | NUR ---
CALLED PHYSICIAN PSYCHIATRIC MENTAL HEALTH NURSE PER ORDERED FSBS < 100. FS CHECKED TWICE 70 CAPILLARY. WILL CONTINUE TO MONITOR.
--- NOTE | 2018-12-29 05:30 | NUR ---
NO CALL BACK FOR [facility] PHYSICIAN INCIDENT ENGINEER. GAVE PT CARB SNACK WITH PROTEIN. RECHECKED SUGAR. 113 AT THIS TIME. WILL CONTINUE TO MONITOR.
[2018-12-29 06:08] LABS: ALBUMIN 2.6 g/dL (3.4-5.0); ANION GAP 9.4 mmol/L (8-16); BILIRUBIN - TOTAL 0.37 mg/dL (0.2-1.3); CALCIUM 8.2 mg/dL (8.5-10.1); CARBON DIOXIDE 28.5 mmol/L (21.0-32.0); CREATININE - SERUM 1.7 mg/dL (0.6-1.3); MAGNESIUM - SERUM 2.1 mg/dL (1.8-2.4); PHOSPHOROUS 3.7 mg/dL (2.5-4.9); POTASSIUM - SERUM 3.9 mmol/L (3.5-5.1)
[2018-12-29 06:13] LABS: BASOPHILS 0.5 % (0-2); EOSINOPHILS 3.7 % (0-7); HEMATOCRIT 31.7 % (42.0-54.0); HEMOGLOBIN 10.4 g/dL (13.5-17.5); IMMATURE GRANULOCYTES 0.2 % (0-5); LYMPHOCYTES 23.7 % (15-50); MCHC 32.8 g/dL (31.0-37.0); MCV 82.3 fL (80.0-100.0); MEAN PLATELET VOLUME 10.4 fL (7.4-10.4); MONOCYTES 8.6 % (2-11); NEUTROPHILS 63.3 % (40-80); PLATELET COUNT 223 10x3/uL (130-400); RBC 3.85 10x6/uL (4.20-6.10); RDW 15.6 % (11.5-14.5); WBC 8.4 10x3/uL (4.8-10.8)
--- NOTE | 2018-12-29 07:39 | NUR ---
PT RESTING PEACEFULLY WHEN I ENTERED. BREATHS EVEN, REGULAR, UNLABORED. NO SIGNS/SYMPTOMS OF DISTRESS NTOED AT THIS TIME. DID NOT FURTHER DSITURB AT THIS ITME. CL INR EACH, SRX2.
--- NOTE | 2018-12-29 10:40 | NUR ---
I have reviewed this patient and I concur with the Shift Assessment completed by the Licensed Practical Nurse today this shift.
--- NOTE | 2018-12-29 11:38 | MORECARE ---
CASE MANAGEMENT DISCHARGE SUMMARY PATIENT: ZAY VALVERDE UNIT: [id number] ADM DATE: 12/28/18 AGE: 58 : 60 SEX: M ROOM/BED: D.2129 AUTHOR: SHEYLA MAY PHYSICIAN: REFERRING PHYSICIAN: KAYLA GRAMAJO MD DATE OF SERVICE: 12/29/18 Discharge Plan Patient Name: ZAY VALVERDE Facility: [facility]:[place] : 1960 Planned Disposition: Home Anticipated Discharge Date: 12/29/18 Discharge Date: Expected LOS: 1 Initial Reviewer: [email or web address] Initial Review Date: 12/28/2018 Generated: 12/29/18 12:38 pm DCPIA - Discharge Planning Initial Assessment Updated by [email or web address]: Yin Mccain on 12/29/18 11:35 am * Is the patient Alert and Oriented? Yes * PCP Dr. Jacobson * Preadmission Environment Home Alone * ADLs Independent * Equipment Glucometer * List name and contact numbers for known caregivers / representatives who currently or will assist patient after discharge: Nilton holleymarilou - [phone] * Verbal permission to speak to the caregivers and representatives has been obtained from the patient. Yes * Community resources currently utilized None * Additional services required to return to the preadmission environment? No * Can the patient safely return to the preadmission environment? Yes * Has this patient been hospitalized within the prior 30 days at any hospital? No Patient Name: ZAY VALVERDE Page [phone] at 1138 All edits/amendments must be made on the electronic document DICTATION DATE: 12/29/18 1138 CHIEF NURSE ANESTHETIST: TRISH 12/29/18 1138 RPT#: [id number] DC DATE: STATUS: ADM IN [facility] [address] [place] [address] END OF REPORT
--- NOTE | 2018-12-29 11:46 | MORECARE ---
CASE MANAGEMENT DISCHARGE SUMMARY PATIENT: ZAY VALVERDE UNIT: [id number] ADM DATE: 12/28/18 AGE: 58 : 60 SEX: M ROOM/BED: D.5656 AUTHOR: LALO,DOC PHYSICIAN: REFERRING PHYSICIAN: KAYLA GRAMAJO MD DATE OF SERVICE: 12/29/18 Discharge Plan Patient Name: ZAY VALVERDE Facility: [facility]:[place] : 1960 Planned Disposition: Home Anticipated Discharge Date: 12/29/18 Discharge Date: Expected LOS: 1 Initial Reviewer: [email or web address] Initial Review Date: 12/28/2018 Generated: 12/29/18 12:45 pm Comments DCP- Discharge Planning Updated by [email or web address]: Yin Mccain on 12/29/18 10:[address] DC PLAN: Return home alone independently. ANTICIPATED DC NEEDS: Unsure how he will get home. CM met with patient to complete initial dc planning assessment. CM educated patient on the CM role and verbal consent given by patient to complete assessment. CM verified patient's address, phone number, and emergency contact phone numbers. Patient lives at home alone and reports he is independent in his care at home. At discharge patient plans to return home and feels this is a safe discharge. CM discussed availability of home health, rehab services, and medical equipment. CM provided patient a list of shelters and also discussed that [facility] had glucometers for 5 dollars and test strips for that glucometer for 5 dollars. He stated that is more affordable for him and he would be able to afford those. He also stated he is not sure how he is going to get home. CM offered a bus ticket and her raised his voice and said he does not need a bus ticket. CM asked him if he could afford to pay for a taxi and he stated no. He then demanded cm call his landlord to see if he would pick him up and that he would pay his landlord. CM called Nilton @ [phone] with no answer. CM instructed patient to stop raising his voice to me as I was here to help him. CM also informed him that he does not have a dc order for discharge at this time. CM will continue to follow and will assist as needed with dc plans/needs. DCPIA - Discharge Planning Initial Assessment Updated by [email or web address]: Yin Mccain on 12/29/18 11:35 am * Is the patient Alert and Oriented? Yes * PCP Dr. Jacobson * Preadmission Environment Home Alone * ADLs Independent * Equipment Glucometer * List name and contact numbers for known caregivers / representatives who currently or will assist patient after discharge: Nilton lassiter - [phone] * Verbal permission to speak to the caregivers and representatives has been obtained from the patient. Yes * Community resources currently utilized None * Additional services required to return to the preadmission environment? No * Can the patient safely return to the preadmission environment? Yes * Has this patient been hospitalized within the prior 30 days at any hospital? No Last DP export: 12/29/18 10:38 a Patient Name: ZAY VALVERDE Page [id number] at 1146 All edits/amendments must be made on the electronic document DICTATION DATE: 12/29/18 1145 ASSEMBLER AND TESTER ELECTRONICS: TRISH 12/29/18 1145 RPT#: [id number] DC DATE: STATUS: ADM IN [facility] [address] [place] [address] END OF REPORT
--- NOTE | 2018-12-29 16:32 | MORECARE ---
CASE MANAGEMENT DISCHARGE SUMMARY PATIENT: ZAY VALVERDE UNIT: [id number] ADM DATE: 12/28/18 AGE: 58 : 60 SEX: M ROOM/BED: D.8189 AUTHOR: LALO,DOC PHYSICIAN: REFERRING PHYSICIAN: KAYLA GRAMAJO MD DATE OF SERVICE: 12/29/18 Discharge Plan Patient Name: ZAY VALVERDE Facility: [facility]:[place] : 1960 Planned Disposition: Home Anticipated Discharge Date: 12/29/18 Discharge Date: Expected LOS: 1 Initial Reviewer: [email or web address] Initial Review Date: 12/28/2018 Generated: 12/29/18 5:31 pm DCP- Discharge Planning Updated by [email or web address]: Yin Mccain on 12/29/18 10:[address] DC PLAN: Return home alone independently. ANTICIPATED DC NEEDS: Unsure how he will get home. CM met with patient to complete initial dc planning assessment. CM educated patient on the CM role and verbal consent given by patient to complete assessment. CM verified patient's address, phone number, and emergency contact phone numbers. Patient lives at home alone and reports he is independent in his care at home. At discharge patient plans to return home and feels this is a safe discharge. CM discussed availability of home health, rehab services, and medical equipment. CM provided patient a list of shelters and also discussed that [facility] had glucometers for 5 dollars and test strips for that glucometer for 5 dollars. He stated that is more affordable for him and he would be able to afford those. He also stated he is not sure how he is going to get home. CM offered a bus ticket and her raised his voice and said he does not need a bus ticket. CM asked him if he could afford to pay for a taxi and he stated no. He then demanded cm call his landlord to see if he would pick him up and that he would pay his landlord. CM called Nilton @ [phone] with no answer. CM instructed patient to stop raising his voice to me as I was here to help him. CM also informed him that he does not have a dc order for discharge at this time. CM will continue to follow and will assist as needed with dc plans/needs. DCPIA - Discharge Planning Initial Assessment Updated by [email or web address]: Yin Mccain on 12/29/18 11:35 am * Is the patient Alert and Oriented? Yes * PCP Dr. Jacobson * Preadmission Environment Home Alone * ADLs Independent * Equipment Glucometer * List name and contact numbers for known caregivers / representatives who currently or will assist patient after discharge: Nilton lassiter - [phone] * Verbal permission to speak to the caregivers and representatives has been obtained from the patient. Yes * Community resources currently utilized None * Additional services required to return to the preadmission environment? No * Can the patient safely return to the preadmission environment? Yes * Has this patient been hospitalized within the prior 30 days at any hospital? No External Providers External Provider: OTHER-OTHER Next Contact Date: Service Request Date: Service Type: Resolution: Reviewer: Comments: Last DP export: 12/29/18 10:46 a Patient Name: ZAY VALVERDE Page [phone] at 1632 All edits/amendments must be made on the electronic document DICTATION DATE: 12/29/18 1631 ASBESTOS PIPE SUPERVISOR: TRISH 12/29/18 1631 RPT#: [id number] DC DATE: STATUS: ADM IN [facility] [address] [place] [address] END OF REPORT
[2018-12-29 16:45] VITALS: BP 140/64
--- NOTE | 2018-12-29 18:20 | NUR ---
CALLED INTO PTS ROOM THIS AM. PT WAS PANICING ABOUT HOW HE WOULD GET HOME. WHEN I TRIED TO REASURE PT THAT WE WOULD NOT KICK HIM OUT, PT HAD A [place]ELTDOWN AND BEGAN RAISING HIS VOICE AND SCREAMING AT ME. CALLED PERLA BECAUSE PT DEMANDED TO SPEA TO A DR. ATTEMPTED TO APEASE PT, PERLA CALMED HIM DONW. AFTERWORDS MYSELF AND RADIATION ONCOLOGY THERAPIST HAD THE PT TAKE A SHOWER HIS ROOM WAS VERY ODEROUS AND UNCOMFROTABLE TO BE IN. PT REFUSED TO PUT BACK ON TELEMETRY. IV CAME OUT DURING HIS ANGER, REFUSED TO PUT ONE IN AT THIS TIME, TOLD ME TO CHECK BACK LATER. PT HAS SINCE BEEN FAIRLY CALM, RESTING.
--- NOTE | 2018-12-29 19:30 | NUR ---
RECEIVED REPORT, WILL ASSUME CARE OF PT, ASKING FOR A DIET DRINK AND GRAMCRACKERS (PROVIDED), BED IS LOW, SRX1, CALL LIGHT IN REACH, WILL CONTINUE PLAN OF CARE
[2018-12-29 22:40] VITALS: BP 134/69
--- NOTE | 2018-12-30 01:09 | NUR ---
I have reviewed this patient and I concur with the Shift Assessment completed by the Licensed Practical Nurse today this shift.
[2018-12-30 01:25] VITALS: BP 134/61; BP 161/63
[2018-12-30 05:20] VITALS: BP 145/66
[2018-12-30 05:49] LABS: UDS - AMPHET POSITIVE QUAL (NEGATIVE); UDS - BARB NEGATIVE QUAL (NEGATIVE); UDS - BENZO NEGATIVE QUAL (NEGATIVE); UDS - COCAINE NEGATIVE QUAL (NEGATIVE); UDS - OPIATE NEGATIVE QUAL (NEGATIVE); UDS - PCP NEGATIVE QUAL (NEGATIVE); UDS - THC NEGATIVE QUAL (NEGATIVE)
[2018-12-30 06:26] LABS: HEMATOCRIT 35.2 % (42.0-54.0); HEMOGLOBIN 11.4 g/dL (13.5-17.5); LYMPHOCYTES 26.2 % (15-50); MCH 27.2 pg (26.0-34.0); MCHC 32.4 g/dL (31.0-37.0); MEAN PLATELET VOLUME 8.9 fL (7.4-10.4); NEUTROPHILS 61.5 % (40-80); RBC 4.19 10x6/uL (4.20-6.10); RDW 14.6 % (11.5-14.5); WBC 6.5 10x3/uL (4.8-10.8)
[2018-12-30 06:37] LABS: ANION GAP 6.5 mmol/L (8-16); CALCIUM 8.7 mg/dL (8.5-10.1); CARBON DIOXIDE 32.4 mmol/L (21.0-32.0); CREATININE - SERUM 1.7 mg/dL (0.6-1.3); MAGNESIUM - SERUM 1.9 mg/dL (1.8-2.4); POTASSIUM - SERUM 3.9 mmol/L (3.5-5.1)
[2018-12-30 06:38] LABS: PLATELET COUNT 277 10x3/uL (130-400)
[2018-12-30 08:33] VITALS: BP 183/74
[2018-12-30 12:30] VITALS: BP 122/76
--- NOTE | 2018-12-30 14:32 | NUR ---
RESTING IN BED WITH EYES CLOSED. RESPIRATIONS NONLABORED. CALL ZAIN AT [phone] REGARDING RIDE. ZAIN STATES, "I WILL BE THERE AT 3:30."
--- NOTE | 2018-12-30 15:53 | NUR ---
ALERT AND ORIENTED X4. SITTING UP ON SIDE OF BED. REFUSE TO SIGN DISCHARGE PAPERS. INFORM RIDE HAS ARRIVED. DEMANDS TO BE TAKEN TO RIDE AND GOWN TIED IN BACK. ESCORT TO RIDE VIA WHEELCHAIR. REMAINS FREE FROM INJURY.
--- NOTE | 2018-12-31 08:49 | MORECARE ---
CASE MANAGEMENT DISCHARGE SUMMARY PATIENT: ZAY VALVERDE UNIT: [id number] ADM DATE: 12/28/18 AGE: 58 : 60 SEX: M ROOM/BED: D.1020 AUTHOR: LALO,DOC PHYSICIAN: REFERRING PHYSICIAN: KAYLA GRAMAJO MD DATE OF SERVICE: 12/31/18 Discharge Plan Patient Name: ZAY VALVERDE Facility: [facility]:[place] : 1960 Planned Disposition: Home Anticipated Discharge Date: 12/30/18 Discharge Date: 12/30/2018 Expected LOS: 2 Initial Reviewer: [email or web address] Initial Review Date: 12/28/2018 Generated: 12/31/18 9:49 am DCP- Discharge Planning Updated by [email or web address]: Yin Mccain on 12/29/18 10:[address] DC PLAN: Return home alone independently. ANTICIPATED DC NEEDS: Unsure how he will get home. CM met with patient to complete initial dc planning assessment. CM educated patient on the CM role and verbal consent given by patient to complete assessment. CM verified patient's address, phone number, and emergency contact phone numbers. Patient lives at home alone and reports he is independent in his care at home. At discharge patient plans to return home and feels this is a safe discharge. CM discussed availability of home health, rehab services, and medical equipment. CM provided patient a list of shelters and also discussed that [facility] had glucometers for 5 dollars and test strips for that glucometer for 5 dollars. He stated that is more affordable for him and he would be able to afford those. He also stated he is not sure how he is going to get home. CM offered a bus ticket and her raised his voice and said he does not need a bus ticket. CM asked him if he could afford to pay for a taxi and he stated no. He then demanded cm call his landlord to see if he would pick him up and that he would pay his landlord. CM called Nilton @ [phone] with no answer. CM instructed patient to stop raising his voice to me as I was here to help him. CM also informed him that he does not have a dc order for discharge at this time. CM will continue to follow and will assist as needed with dc plans/needs. DCPIA - Discharge Planning Initial Assessment Updated by [email or web address]: Yin Mccain on 12/29/18 11:35 am * Is the patient Alert and Oriented? Yes * PCP Dr. Jacobson * Preadmission Environment Home Alone * ADLs Independent * Equipment Glucometer * List name and contact numbers for known caregivers / representatives who currently or will assist patient after discharge: Nilton holley - [phone] * Verbal permission to speak to the caregivers and representatives has been obtained from the patient. Yes * Community resources currently utilized None * Additional services required to return to the preadmission environment? No * Can the patient safely return to the preadmission environment? Yes * Has this patient been hospitalized within the prior 30 days at any hospital? No Last DP export: 12/29/18 3:31 p Patient Name: ZAY VALVERDE Page [id number] at 0849 All edits/amendments must be made on the electronic document DICTATION DATE: 12/31/18847 ELECTROLYTIC DE SCALER: TRISH 12/31/18847 RPT#: [id number] DC DATE:12/30/18 STATUS: DIS IN [facility] [address] [place] [address] END OF REPORT
== END 2018-12-30 15:55 | disposition home or self-care (01) ==
LOC: D.ER 10:28 → OBSVTIME 14:15 → D.M2 14:15
PROVIDERS: Family Medicine; ADMIT Internal Medicine Nephrology; ATTEND Internal Medicine Nephrology
DX: I20.9 Angina pectoris, unspecified (principal); I13.0 Hypertensive heart and chronic kidney disease with heart failure and stage 1 through stage 4 chronic kidney disease, or unspecified chronic kidney disease; I50.31 Acute diastolic (congestive) heart failure; N18.3 Chronic kidney disease, stage 3 (moderate); E11.22 Type 2 diabetes mellitus with diabetic chronic kidney disease; J44.9 Chronic obstructive pulmonary disease, unspecified; E78.5 Hyperlipidemia, unspecified; D50.9 Iron deficiency anemia, unspecified; R45.851 Suicidal ideations; E66.01 Morbid (severe) obesity due to excess calories; Z91.14 Patient's other noncompliance with medication regimen; F17.203 Nicotine dependence unspecified, with withdrawal; F41.9 Anxiety disorder, unspecified; Z68.42 Body mass index [BMI] 45.0-49.9, adult; F15.10 Other stimulant abuse, uncomplicated; M10.9 Gout, unspecified; G93.41 Metabolic encephalopathy; E87.1 Hypo-osmolality and hyponatremia; E16.2 Hypoglycemia, unspecified

== ENCOUNTER 2019-02-10 19:57 | Emergency (ER) | payer MEDICARE, MEDICAID ==
[~2019-02-10] VITALS: Ht 180.3 cm; Wt 127.9 kg
[~2019-02-10 19:57] MED LIST changes: +AMBIEN10 MG PO
[2019-02-10 20:00] VITALS: Ht 180.3 cm; Wt 127.9 kg
[2019-02-10] MEDS ORDERED: SONATA (20:07)
[2019-02-10 20:33] LABS: UDS - AMPHET POSITIVE QUAL (NEGATIVE); UDS - BARB NEGATIVE QUAL (NEGATIVE); UDS - BENZO NEGATIVE QUAL (NEGATIVE); UDS - COCAINE NEGATIVE QUAL (NEGATIVE); UDS - OPIATE NEGATIVE QUAL (NEGATIVE); UDS - PCP NEGATIVE QUAL (NEGATIVE); UDS - THC NEGATIVE QUAL (NEGATIVE)
[2019-02-10 20:37] LABS: APPEARANCE CLEAR (CLEAR); BILIRUBIN NEGATIVE (NEGATIVE); COLOR YELLOW (YELLOW); GLUCOSE 1000 mg/dL (NEGATIVE); KETONE NEGATIVE (NEGATIVE); NITRITE NEGATIVE (NEGATIVE); PROTEIN 1+ mg/dL (NEGATIVE); UROBILINOGEN NORMAL (NORMAL)
[2019-02-10 20:39] LABS: BASOPHILS 0.5 % (0-2); HEMATOCRIT 41.9 % (42.0-54.0); HEMOGLOBIN 13.9 g/dL (13.5-17.5); IMMATURE GRANULOCYTES 0.3 % (0-5); LYMPHOCYTES 15.2 % (15-50); MCH 27.9 pg (26.0-34.0); MCHC 33.2 g/dL (31.0-37.0); MEAN PLATELET VOLUME 9.8 fL (7.4-10.4); MONOCYTES 7.9 % (2-11); NEUTROPHILS 73.1 % (40-80); PLATELET COUNT 276 10x3/uL (130-400); RBC 4.99 10x6/uL (4.20-6.10); RDW 14.2 % (11.5-14.5); WBC 11.1 10x3/uL (4.8-10.8)
--- NOTE | 2019-02-10 20:45 | NUR ---
DR REMY NOTIFIED AND REVIEWED PT BEHAVIOR AND ASSESSMENT RESULTS. PT IS A LOW RISK PER DOCTOR REMY. DR REMY STATED TO GIVE RESOURCES TO PT AT TIME OF DISCHARGE. NO FURTHER ORDERS AT THIS TIME. RESOURCES REVEIEWED WIT PT AND HE VERBALIZED UNDERSTANDING.
[2019-02-10 20:50] LABS: ANION GAP 10.8 mmol/L (8-16); CARBON DIOXIDE 29.5 mmol/L (21.0-32.0); CREATININE - SERUM 1.8 mg/dL (0.6-1.3); POTASSIUM - SERUM 4.3 mmol/L (3.5-5.1)
[2019-02-10 21:06] LABS: BILIRUBIN - TOTAL 0.47 mg/dL (0.2-1.3); MAGNESIUM - SERUM 1.9 mg/dL (1.8-2.4); PROTEIN - SERUM 7.2 g/dL (6.4-8.2); THYROID STIMULATING HORMONE 5.73 uIU/mL (0.36-3.74); URIC ACID 7.1 mg/dL (2.6-7.2)
[2019-02-11] MEDS ORDERED: AUGMENTIN 875-11 TAB PO (03:08)
[2019-02-11 06:54] VITALS: BP 161/69
== END 2019-02-11 08:50 ==
LOC: D.ER 19:57
PROVIDERS: Emergency Medicine
DX: F32.9 Major depressive disorder, single episode, unspecified (principal); R45.851 Suicidal ideations; E11.22 Type 2 diabetes mellitus with diabetic chronic kidney disease; I12.9 Hypertensive chronic kidney disease with stage 1 through stage 4 chronic kidney disease, or unspecified chronic kidney disease; N18.9 Chronic kidney disease, unspecified; E11.65 Type 2 diabetes mellitus with hyperglycemia

== ENCOUNTER 2019-03-11 13:13 | Observation (INO) | payer MEDICARE, MEDICAID ==
[~2019-03-11] VITALS: Ht 180.3 cm; Wt 138.3 kg
[~2019-03-11 13:13] MED LIST changes: +AUGMENTIN 875-11 TAB PO; +SONATA
--- NOTE | 2019-03-11 13:36 | NUR ---
EMS HUNG NS 500ML BAG, AT TIME OF ARRIVAL, PT HAD RECEIVED APPROX. 150ML. PER EDP, ALLOW THE REMAINING AMOUNT OF NS (FROM 500ML BAG) TO INFUSE.
[2019-03-11 13:42] LABS: BASOPHILS 0.3 % (0-2); EOSINOPHILS 2.5 % (0-7); HEMATOCRIT 37.6 % (42.0-54.0); HEMOGLOBIN 12.1 g/dL (13.5-17.5); IMMATURE GRANULOCYTES 0.2 % (0-5); MCH 27.1 pg (26.0-34.0); MCHC 32.2 g/dL (31.0-37.0); MCV 84.1 fL (80.0-100.0); MEAN PLATELET VOLUME 9.6 fL (7.4-10.4); MONOCYTES 6.2 % (2-11); NEUTROPHILS 78.8 % (40-80); PLATELET COUNT 245 10x3/uL (130-400); RBC 4.47 10x6/uL (4.20-6.10); RDW 14.6 % (11.5-14.5); WBC 10.8 10x3/uL (4.8-10.8)
[2019-03-11 13:51] LABS: APTT 29.6 SECONDS (22.8-39.4); CALC OSMOLALITY 277 mosm/kg (275-300); CALCIUM 9.3 mg/dL (8.5-10.1); CHLORIDE - SERUM 103 mmol/L (98-107); CREATININE - SERUM 1.6 mg/dL (0.6-1.3); GLUCOSE 117 mg/dL (74-106); INR 1.05 (0.85-1.17); POTASSIUM - SERUM 3.7 mmol/L (3.5-5.1); PROTIME 13.2 SECONDS (11.6-15.0); SODIUM 138 mmol/L (136-145); UREA NITROGEN 16 mg/dL (7-18); eGFR NON AFRICAN AMERICAN 47 mL/min (90-120)
[2019-03-11 14:08] LABS: ALBUMIN 3.1 g/dL (3.4-5.0); ALKALINE PHOSPHATASE 124 U/L (46-116); ALT (SGPT) 20 U/L (10-68); BILIRUBIN - TOTAL 0.84 mg/dL (0.2-1.3); CKMB 2.1 U/L (0.0-3.6); CREATINE KINASE 38 UL (21-232); PRO BNP 3674 pg/mL (0-125); PROTEIN - SERUM 7.8 g/dL (6.4-8.2)
[2019-03-11 14:09] LABS: TROPONIN-I < 0.017 ng/mL (0.000-0.060)
[2019-03-11 14:30] VITALS: BP 221/127
[2019-03-11 14:46] VITALS: BP 182/98
[2019-03-11 16:31] VITALS: BP 192/96
--- NOTE | 2019-03-11 17:27 | MORECARE ---
CASE MANAGEMENT DISCHARGE SUMMARY PATIENT: ABRAM COLLAZO UNIT: [id number] ADM DATE: 03/11/19 AGE: 58 : 60 SEX: M ROOM/BED: D.2238 AUTHOR: SHEYLA MAY PHYSICIAN: REFERRING PHYSICIAN: WILFRED HERBERT MD DATE OF SERVICE: 03/11/19 Discharge Plan Patient Name: ABRAM COLLAZO Facility: [facility]:[place] : 1960 Planned Disposition: Home Anticipated Discharge Date: 03/13/19 Discharge Date: Expected LOS: 2 Initial Reviewer: [email or web address] Initial Review Date: 03/11/2019 Generated: 03/11/19 6:27 pm Patient Name: ABRAM COLLAZO Page [id number] at 1729 All edits/amendments must be made on the electronic document DICTATION DATE: 03/11/191726 BEACH PATROL LIEUTENANT: TRISH 03/11/191726 RPT#: [id number] DC DATE: STATUS: ADM IN [facility] [address] [place] [address] END OF REPORT
--- NOTE | 2019-03-11 17:35 | MORECARE ---
CASE MANAGEMENT DISCHARGE SUMMARY PATIENT: ABRAM COLLAZO UNIT: [id number] ADM DATE: 03/11/19 AGE: 58 : 60 SEX: M ROOM/BED: D.2238 AUTHOR: LALO,DOC PHYSICIAN: REFERRING PHYSICIAN: WILFRED HERBERT MD DATE OF SERVICE: 03/11/19 Discharge Plan Patient Name: ABRAM COLLAZO Facility: [facility]:[place] : 1960 Planned Disposition: Home Anticipated Discharge Date: 03/13/19 Discharge Date: Expected LOS: 2 Initial Reviewer: [email or web address] Initial Review Date: 03/11/2019 Generated: 03/11/19 6:35 pm DCP- Discharge Planning Updated by [email or web address]: Yin Mccain on 03/11/19 4:[address] DC PLAN: Return to [facility] ANTICIPATED DC NEEDS: May need a nebulizer or home o2. CM met with patient to complete initial dc planning assessment. CM educated patient on the CM role and verbal consent given by patient to complete assessment. CM verified patient's address, phone number, and emergency contact phone numbers. Patient lives at [facility]. He reports he is independent in his care at home. At discharge patient plans to return to [facility] and feels this is a safe discharge. Patient denied having a nebulizer or home o2 currently. CM discussed availability of home health, rehab services, and medical equipment. Patient denied known discharge needs at this time. Transportation provider at discharge will be [facility]. CM will continue to follow and will assist as needed with dc plans/needs. Yin Mccain RN, [facility] DCPIA - Discharge Planning Initial Assessment Updated by [email or web address]: Yin Mccain on 03/11/19 5:27 pm * Is the patient Alert and Oriented? Yes * How many steps to enter\exit or inside your home? NONE * PCP Dr. Jacobson * Pharmacy [facility] * Preadmission Environment Home Alone * ADLs Independent * Equipment None * List name and contact numbers for known caregivers / representatives who currently or will assist patient after discharge: No family or anyone he wanted to list. * Verbal permission to speak to the caregivers and representatives has been obtained from the patient. Yes * Community resources currently utilized Other * Please name any agencies selected above. [facility] * Additional services required to return to the preadmission environment? No * Can the patient safely return to the preadmission environment? Yes * Has this patient been hospitalized within the prior 30 days at any hospital? No Last DP export: 03/11/19 4:27 Patient Name: ABRAM COLLAZO Page [phone] at 1735 All edits/amendments must be made on the electronic document DICTATION DATE: 03/11/191733 CEMENT STORAGE WORKER: TRISH 03/11/191733 RPT#: [id number] DC DATE: STATUS: ADM IN [facility] [address] [place] [address] END OF REPORT
[2019-03-11 18:36] VITALS: BP 128/86; BMI 42.6
[2019-03-11 19:47] LABS: % SATURATION 11 % (15-55); IRON 35 ug/dl (35-150); TOTAL IRON BIND CAPACITY 294 ug/dl (260-445); UNSAT IRON BIND CAPACITY 259 ug/dl (150-375)
[2019-03-11 20:41] VITALS: BP 193/93
[2019-03-12 01:46] VITALS: BP 194/100
[2019-03-12 04:49] VITALS: BP 181/91
--- NOTE | 2019-03-12 06:16 | NUR ---
I have reviewed this patient and I concur with the Shift Assessment completed by the Licensed Practical Nurse today this shift.
[2019-03-12 06:58] LABS: BASOPHILS 0.1 % (0-2); EOSINOPHILS 0 % (0-7); HEMATOCRIT 39.2 % (42.0-54.0); HEMOGLOBIN 12.7 g/dL (13.5-17.5); IMMATURE GRANULOCYTES 0.4 % (0-5); LYMPHOCYTES 7.4 % (15-50); MCH 26.9 pg (26.0-34.0); MCHC 32.4 g/dL (31.0-37.0); MCV 83.1 fL (80.0-100.0); MEAN PLATELET VOLUME 9.9 fL (7.4-10.4); MONOCYTES 4.6 % (2-11); NEUTROPHILS 87.5 % (40-80); PLATELET COUNT 283 10x3/uL (130-400); RBC 4.72 10x6/uL (4.20-6.10); RDW 14.5 % (11.5-14.5); WBC 10.5 10x3/uL (4.8-10.8)
[2019-03-12 07:15] LABS: ALBUMIN 3.2 g/dL (3.4-5.0); ANION GAP 17.7 mmol/L (8-16); BILIRUBIN - TOTAL 0.73 mg/dL (0.2-1.3); CALCIUM 9.4 mg/dL (8.5-10.1); CARBON DIOXIDE 21.5 mmol/L (21.0-32.0); CREATININE - SERUM 1.7 mg/dL (0.6-1.3); POTASSIUM - SERUM 4.2 mmol/L (3.5-5.1); PROTEIN - SERUM 7.4 g/dL (6.4-8.2)
--- NOTE | 2019-03-12 07:30 | NUR ---
PATIENT UP STATING HE "NEEDS SOMETHING" WHEN I SUGGESTED A URINAL HE REPLIES THAT IS IT. URINAL WAS PROVIDED. COLLECTED URINE SAMPLE. PATIENT UP PACING. CL IN REACH. WCTM
[2019-03-12 08:45] LABS: APPEARANCE CLEAR (CLEAR); BACTERIA FEW /hpf (NEGATIVE); BILIRUBIN NEGATIVE (NEGATIVE); COLOR YELLOW (YELLOW); EPITHELIAL CELLS 0-5 /hpf (0-5); GLUCOSE 250 mg/dL (NEGATIVE); KETONE SMALL mg/dL (NEGATIVE); MUCUS <1+ /lpf (NONE SEEN); NITRITE NEGATIVE (NEGATIVE); PROTEIN 3+ mg/dL (NEGATIVE); RED CELLS - URINE 0-5 /hpf (0-5); SPECIFIC GRAVITY 1.015 (1.005-1.020); UROBILINOGEN NORMAL (NORMAL); WHITE CELLS - URINE RARE /hpf (NEGATIVE)
[2019-03-12 08:53] VITALS: BP 193/98
[2019-03-12 11:30] VITALS: BP 175/89
--- NOTE | 2019-03-12 13:35 | NUR ---
[facility] ASKING IF WE WOULD CALL [facility] HIS INSURANCE SO HE CAN HAVE A RIDE HOME TOMORROW.
[2019-03-12 13:51] VITALS: Ht 180.3 cm; Wt 138.3 kg
--- NOTE | 2019-03-12 15:14 | NUR ---
PATIENT REQUESTING COUGH MEDICINE FOR HIS DRY NON-PRODUCTIVE COUGH. ATTEMPTING TO GET [facility] OF Jd [facility] APN.
--- NOTE | 2019-03-12 16:01 | NUR ---
PATIENT CO OF CHEST PAIN. GROCERY STORE BAGGER REPORTS THAT HE IS RUNNING [address]. PATIENT THINKS HE HAS JUST BEEN COUGHING SO MUCH AND MAKING HIS CHEST HURT.
[2019-03-12 17:23] VITALS: BP 122/74
--- NOTE | 2019-03-12 18:00 | NUR ---
PATIENT LAYING ON BACK. NO NEEDS AT THIS TIME. CL IN REACH. WCTM
[2019-03-12 20:14] VITALS: BP 137/63
[2019-03-13 01:02] VITALS: BP 112/52
--- NOTE | 2019-03-13 03:12 | NUR ---
I have reviewed this patient and I concur with the Shift Assessment completed by the Licensed Practical Nurse today this shift.
[2019-03-13 05:11] VITALS: BP 111/63
[2019-03-13 06:43] LABS: ALBUMIN 2.9 g/dL (3.4-5.0); ANION GAP 14.6 mmol/L (8-16); BILIRUBIN - TOTAL 0.43 mg/dL (0.2-1.3); CARBON DIOXIDE 22.6 mmol/L (21.0-32.0); CREATININE - SERUM 2.1 mg/dL (0.6-1.3); POTASSIUM - SERUM 4.2 mmol/L (3.5-5.1)
[2019-03-13 07:23] LABS: BASOPHILS 0.1 % (0-2); EOSINOPHILS 0.1 % (0-7); IMMATURE GRANULOCYTES 0.4 % (0-5); LYMPHOCYTES 8.9 % (15-50); MCH 27.2 pg (26.0-34.0); MCHC 32.4 g/dL (31.0-37.0); MEAN PLATELET VOLUME 10.4 fL (7.4-10.4); MONOCYTES 8.4 % (2-11); NEUTROPHILS 82.1 % (40-80); PLATELET COUNT 285 10x3/uL (130-400); RBC 4.05 10x6/uL (4.20-6.10); RDW 14.8 % (11.5-14.5); WBC 11.4 10x3/uL (4.8-10.8)
[2019-03-13 09:22] VITALS: BP 151/77
--- NOTE | 2019-03-13 12:56 | NUR ---
PATIENT EXCITED TO BE DISCHARGED. WILL HAVE A RIDE HOME VIA HOSPITAL. CL IN REACH. NO FURTHER NEEDS AT THIS TIME.
--- NOTE | 2019-03-13 13:18 | MORECARE ---
CASE MANAGEMENT DISCHARGE SUMMARY PATIENT: ABRAM COLLAZO UNIT: [id number] ADM DATE: 03/11/19 AGE: 58 : 60 SEX: M ROOM/BED: D.2238 AUTHOR: LALO,DOC PHYSICIAN: REFERRING PHYSICIAN: WILFRED HERBERT MD DATE OF SERVICE: 03/13/19 Discharge Plan Patient Name: ABRAM COLLAZO Facility: [facility]:[place] : 1960 Planned Disposition: Home Anticipated Discharge Date: 03/13/19 Discharge Date: Expected LOS: 2 Initial Reviewer: [email or web address] Initial Review Date: 03/11/2019 Generated: 03/13/19 2:18 pm Comments DCP- Discharge Planning Updated by [email or web address]: Amber Main on 03/13/19 12:[address] Room air oxygen saturation is 96% at rest and with exertion, he does not qualify for home oxygen. He states he will need a taxi home and does not have any money to pay for taxi, cost is [address] [place] [address] in [place], Serina José has approved to go on case management tab. CM will continue to follow and assist with discharge planning/needs. DCP- Discharge Planning Updated by [email or web address]: Yin Mccain on 03/11/19 4:[address] DC PLAN: Return to [facility] ANTICIPATED DC NEEDS: May need a nebulizer or home o2. CM met with patient to complete initial dc planning assessment. CM educated patient on the CM role and verbal consent given by patient to complete assessment. CM verified patient's address, phone number, and emergency contact phone numbers. Patient lives at [facility]. He reports he is independent in his care at home. At discharge patient plans to return to [facility] and feels this is a safe discharge. Patient denied having a nebulizer or home o2 currently. CM discussed availability of home health, rehab services, and medical equipment. Patient denied known discharge needs at this time. Transportation provider at discharge will be [facility]. CM will continue to follow and will assist as needed with dc plans/needs. Yin Mccain RN, [facility] DCPIA - Discharge Planning Initial Assessment Updated by [email or web address]: Yin Mccain on 03/11/19 5:27 pm * Is the patient Alert and Oriented? Yes * How many steps to enter\exit or inside your home? NONE * PCP Dr. Jacobson * Pharmacy [facility] * Preadmission Environment Home Alone * ADLs Independent * Equipment None * List name and contact numbers for known caregivers / representatives who currently or will assist patient after discharge: No family or anyone he wanted to list. * Verbal permission to speak to the caregivers and representatives has been obtained from the patient. Yes * Community resources currently utilized Other * Please name any agencies selected above. [facility] * Additional services required to return to the preadmission environment? No * Can the patient safely return to the preadmission environment? Yes * Has this patient been hospitalized within the prior 30 days at any hospital? No Coverage Notice Reviewer: [email or web address] - Yin Mccain Notice Issued Date-Time: 03/11/2019 17:38 Notice Type: Medicare Outpatient Observation Notice Notice Delivered To: Patient Relationship to Patient: [employer] Lunchroom Supervisor Name: Delivery Method: HAND - Hand Delivered Tati Days: Prior Verbal Notification: Recipient Understood Notice: Recipient Signature: Med Rec Note Co-signed by Attending: Coverage Notice Comment: ALEXANDER delivered, explained, signed by the patient, and placed in his chart. Signed form also left with patient. Yin Mccain RN , [facility] Last DP export: 03/11/19 4:35 Patient Name: ABRAM COLLAZO Page [phone] at 1318 All edits/amendments must be made on the electronic document DICTATION DATE: 03/13/19 1318 SIDER MECHANIC: TRISH 03/13/19 1318 RPT#: [id number] DC DATE: STATUS: ADM IN [facility] [address] [place] [address] END OF REPORT
[2019-03-13] MEDS ORDERED: DEPAKOTE500 MG PO (13:30)
[2019-03-13] MEDS ORDERED: PROTONIX40 MG PO (13:40)
[2019-03-13] MEDS ORDERED: ZITHROMAX TRI-500 MG PO (13:41)
[2019-03-13] MEDS ORDERED: PREDNISONE10 MG PO (13:41)
[2019-03-13] MEDS ORDERED: Tessalon Perle PO (13:42)
--- NOTE | 2019-03-13 13:45 | CN ---
PATIENT NAME:ABRAM COLLAZO MEDICAL RECORD: [id number] : 60 LOCATION:D.MS Justice2238 ADMIT DATE: 03/11/19 ACCOUNT: [id number] CONSULTING PHYSICIAN: TAMARA REMY MD REFERRING PHYSICIAN: WILFRED HERBERT MD DATE OF CONSULTATION: 03/12/2019 IDENTIFYING DATA: The patient is 58 years old and he is admitted to the hospital on a voluntary basis. CHIEF COMPLAINT: None. HISTORY OF PRESENT ILLNESS: The patient apparently has had an exacerbation of his COPD. He continues to smoke despite being morbidly obese and oxygen dependent. He apparently was close to being ready for discharge, but began having some confusion and was refusing medications and therapies. Apparently, this is the reason I am consulted. When I interview the patient, he denies those things. He says he has not refused any medicines or therapies that he can recall. He says he thinks he had some confusion, but he has gotten some sleep and feels much better. He denies being suicidal. He seems to be calm and in good behavioral control and fully oriented. He denies any thoughts of harming himself or others. ASSESSMENT: Bipolar disorder. PLAN: The patient is not taking any medications for bipolar disorder, which is not odd. I am going to start him on Depakote at a dose of 500 mg twice daily and he will need a Depakote level in 1 week. He is taking a bizarrely large amount of Neurontin 3200 mg daily. I have discontinued that. I also discontinued his Habitrol patch since that can interfere with proper sleep and it is my opinion that if he can have a few days without cigarettes or nicotine that perhaps that will give him an incentive to quit. I do not see any evidence of acute or direct dangerousness. He goes to [facility] and I think he should follow up there. TRANSINT:[id number] Voice Confirmation ID: [id number] DOCUMENT ID: [id number] TAMARA REMY MD at 1345 CC: [id number] DICTATION DATE: 03/12/19 1602 ATTRACTIONS ASSOCIATE: 03/12/19 191 ADM IN [place] [address] [place] [address]
--- NOTE | 2019-03-13 14:12 | NUR ---
NUTRITION F/U PT TOLERATING DIABETIC DIET. 100% INTAKE RECENT MEALS. WILL CONTINUE TO PROVIDE DIET, MONITOR PO INTAKE. RD FOLLOWING
[2019-03-13 14:25] VITALS: BP 141/65
--- NOTE | 2019-03-13 15:29 | NUR ---
IV THERAPY REMOVED FROM LEFT HAND WITH TIP INTACT. DISCHARGE INSTRUCTIONS GIVEN. PATIENT VERBALIZED UNDERSTANDING. TAXI CALLED. ESCORTED DOWNSTAIRS. PATIENT DID NOT HAVE ANY SHOES.
--- NOTE | 2019-03-15 10:34 | MORECARE ---
CASE MANAGEMENT DISCHARGE SUMMARY PATIENT: ABRAM COLLAZO UNIT: [id number] ADM DATE: 03/11/19 AGE: 58 : 60 SEX: M ROOM/BED: D.2238 AUTHOR: LALO,DOC PHYSICIAN: REFERRING PHYSICIAN: WILFRED HERBERT MD DATE OF SERVICE: 03/15/19 Discharge Plan Patient Name: ABRAM COLLAZO Facility: [facility]:[place] : 1960 Planned Disposition: Home Anticipated Discharge Date: 03/13/19 Discharge Date: 03/13/2019 Expected LOS: 2 Initial Reviewer: [email or web address] Initial Review Date: 03/11/2019 Generated: 03/15/19 11:33 am Comments DCP- Discharge Planning Updated by [email or web address]: Amber Main on 03/13/19 12:[address] Room air oxygen saturation is 96% at rest and with exertion, he does not qualify for home oxygen. He states he will need a taxi home and does not have any money to pay for taxi, cost is [address] [place] [address] in [place], Serinaliudmila José has approved to go on case management tab. CM will continue to follow and assist with discharge planning/needs. DCP- Discharge Planning Updated by [email or web address]: Yin Mccain on 03/11/19 4:[address] DC PLAN: Return to [facility] ANTICIPATED DC NEEDS: May need a nebulizer or home o2. CM met with patient to complete initial dc planning assessment. CM educated patient on the CM role and verbal consent given by patient to complete assessment. CM verified patient's address, phone number, and emergency contact phone numbers. Patient lives at [facility]. He reports he is independent in his care at home. At discharge patient plans to return to [facility] and feels this is a safe discharge. Patient denied having a nebulizer or home o2 currently. CM discussed availability of home health, rehab services, and medical equipment. Patient denied known discharge needs at this time. Transportation provider at discharge will be [facility]. CM will continue to follow and will assist as needed with dc plans/needs. Yin Mccain RN, [facility] DCPIA - Discharge Planning Initial Assessment Updated by [email or web address]: Yin Mccain on 03/11/19 5:27 pm * Is the patient Alert and Oriented? Yes * How many steps to enter\exit or inside your home? NONE * PCP Dr. Jacobson * Pharmacy [facility] * Preadmission Environment Home Alone * ADLs Independent * Equipment None * List name and contact numbers for known caregivers / representatives who currently or will assist patient after discharge: No family or anyone he wanted to list. * Verbal permission to speak to the caregivers and representatives has been obtained from the patient. Yes * Community resources currently utilized Other * Please name any agencies selected above. [facility] * Additional services required to return to the preadmission environment? No * Can the patient safely return to the preadmission environment? Yes * Has this patient been hospitalized within the prior 30 days at any hospital? No Coverage Notice Reviewer: [id number] - Yin Mccain Notice Issued Date-Time: 03/11/2019 17:38 Notice Type: Medicare Outpatient Observation Notice Notice Delivered To: Patient Relationship to Patient: Skiver Machine Operator Name: Delivery Method: HAND - Hand Delivered Tati Days: Prior Verbal Notification: Recipient Understood Notice: Recipient Signature: Med Rec Note Co-signed by Attending: Coverage Notice Comment: ALEXANDER delivered, explained, signed by the patient, and placed in his chart. Signed form also left with patient. Yin Mccain RN , [facility] Last DP export: 03/13/19 12:19 Patient Name: ABRAM COLLAZO Page [id number] at 1034 All edits/amendments must be made on the electronic document DICTATION DATE: 03/15/19 1033 MOLDER FEEDER: TRISH 03/15/19 1033 RPT#: [id number] DC DATE:03/13/19 STATUS: DIS IN [facility] [address] [place] [address] END OF REPORT
== END 2019-03-13 15:31 | disposition home or self-care (01) ==
LOC: D.ER 13:13 → D.MS 16:03 → OBSVTIME 16:03 → D.MS 16:03
PROVIDERS: Family Medicine; ADMIT Family Medicine; ATTEND Family Medicine
DX: J44.1 Chronic obstructive pulmonary disease with (acute) exacerbation (principal); J96.11 Chronic respiratory failure with hypoxia; F31.9 Bipolar disorder, unspecified; E78.5 Hyperlipidemia, unspecified; I13.0 Hypertensive heart and chronic kidney disease with heart failure and stage 1 through stage 4 chronic kidney disease, or unspecified chronic kidney disease; E11.22 Type 2 diabetes mellitus with diabetic chronic kidney disease; N18.3 Chronic kidney disease, stage 3 (moderate); I50.32 Chronic diastolic (congestive) heart failure; F17.213 Nicotine dependence, cigarettes, with withdrawal; Z91.19 Patient's noncompliance with other medical treatment and regimen; E66.01 Morbid (severe) obesity due to excess calories

== ENCOUNTER 2019-10-01 16:20 | Inpatient (IN) | payer MEDICARE, MEDICAID ==
[~2019-10-01] VITALS: Ht 180.3 cm; Wt 126.6 kg
[~2019-10-01 16:20] MED LIST changes: +DEPAKOTE500 MG PO; +PREDNISONE10 MG PO; +PROTONIX40 MG PO; +Tessalon Perle PO; +ZITHROMAX TRI-500 MG PO
[2019-10-01 17:01] LABS: BASOPHILS 0.3 % (0-2); EOSINOPHILS 0.8 % (0-7); HEMATOCRIT 40.5 % (42.0-54.0); HEMOGLOBIN 13.4 g/dL (13.5-17.5); IMMATURE GRANULOCYTES 0.7 % (0-5); LYMPHOCYTES 10.2 % (15-50); MCH 28.8 pg (26.0-34.0); MCHC 33.1 g/dL (31.0-37.0); MCV 86.9 fL (80.0-100.0); MEAN PLATELET VOLUME 8.9 fL (7.4-10.4); PLATELET COUNT 275 10x3/uL (130-400); RBC 4.66 10x6/uL (4.20-6.10); RDW 14.2 % (11.5-14.5); WBC 11.7 10x3/uL (4.8-10.8)
[2019-10-01 17:24] LABS: APTT 30.7 SECONDS (22.8-39.4); INR 1.06 (0.85-1.17); PROTIME 13.8 SECONDS (11.6-15.0)
--- NOTE | 2019-10-01 17:29 | NUR ---
UA SENT TO LAB
[2019-10-01 17:43] LABS: ALBUMIN 2.6 g/dL (3.4-5.0); ALKALINE PHOSPHATASE 150 U/L (30-120); ALT (SGPT) 16 U/L (10-68); BILIRUBIN - TOTAL 0.63 mg/dL (0.2-1.3); CALCIUM 9.3 mg/dL (8.5-10.1); CARBON DIOXIDE 27.6 mmol/L (21.0-32.0); CHLORIDE - SERUM 93 mmol/L (98-107); CKMB 1.7 U/L (0.0-3.6); CREATINE KINASE 24 UL (21-232); CREATININE - SERUM 2.5 mg/dL (0.6-1.3); POTASSIUM - SERUM 4.1 mmol/L (3.5-5.1); PROTEIN - SERUM 7.5 g/dL (6.4-8.2); SODIUM 131 mmol/L (136-145); UREA NITROGEN 30 mg/dL (7-18); eGFR NON AFRICAN AMERICAN 28 mL/min (90-120)
[2019-10-01 17:48] VITALS: BP 149/75
[2019-10-01 17:51] LABS: CALC OSMOLALITY 286 mosm/kg (275-300); TROPONIN-I < 0.017 ng/mL (0.000-0.060)
[2019-10-01 17:51] LABS: BILIRUBIN NEGATIVE (NEGATIVE); GLUCOSE 1000 mg/dL (NEGATIVE); KETONE MODERATE mg/dL (NEGATIVE); NITRITE NEGATIVE (NEGATIVE); SPECIFIC GRAVITY 1.015 (1.005-1.020); UROBILINOGEN NORMAL (NORMAL)
[2019-10-01 17:52] LABS: BACTERIA FEW /hpf (NEGATIVE); RED CELLS - URINE 0-5 /hpf (0-5); WHITE CELLS - URINE 0-5 /hpf (NEGATIVE)
[2019-10-01 17:52] LABS: GLUCOSE 429 mg/dL (74-106)
[2019-10-01 18:24] VITALS: BP 144/96
--- NOTE | 2019-10-01 19:02 | NUR ---
BS:370
--- NOTE | 2019-10-01 19:05 | NUR ---
BEDSIDE REPORT GIVEN TO SUREKHA
[2019-10-01 19:30] VITALS: BP 159/82
--- NOTE | 2019-10-01 20:37 | NUR ---
ATTEMPTED X 4 TO CALL REPORT ON PATIENT, CALLED [facility] SHE SAID THEY SHOULD BE ABLE TO TAKE REPORT AND TOLD ME TO TRY AGAIN.
--- NOTE | 2019-10-01 21:08 | NUR ---
CHARGE NURSE ATTEMPTED TO CALL THE FLOOR X2 NO ANSWER, I WAS TOLD TO TAKE PATIENT TO THE FLOOR AND GIVE A BEDSIDE REPORT, DID SO.
--- NOTE | 2019-10-01 21:40 | NUR ---
PT ARRIVED TO THE FLOOR. ALERT AND ORIENTED. NO SIGNS OF DISTRESS. BREATHING EVEN AND UNLABORED. IV SITE LT FA DRESSING CLEAN DRY AND INTACT. NO SIGNS OF INFECTION OR INFULTRATION. PT STATES NO PROBLEMS AT THIS TIME. LUNG SOUNDS CLEAR. BOWEL SOUNDS ACTIVE. SKIN CLEAN DRY AND INTACT. RT FOOT PINKY TOE SMALL STRAIGHT CUT ON BOTTOM. ON TOP OF PINKY TOE RED AND SWOLLEN. WILL CONTINUE PLAN OF CARE. CALL LIGHT IN REACH. BED LOWERED AND LOCKED. BED RAILS UPX2.
[2019-10-01] MEDS ORDERED: NEURONTIN 400400 MG PO (21:51)
[2019-10-01] MEDS ORDERED: SEROQUEL300 MG PO (21:52)
[2019-10-01 21:55] VITALS: BP 188/91
[2019-10-02] VITALS: BP 152/78
[2019-10-02 01:18] VITALS: BMI 39.0
[2019-10-02 04:00] VITALS: BP 122/53
[2019-10-02 07:56] LABS: ALBUMIN 2.1 g/dL (3.4-5.0); BILIRUBIN - TOTAL 0.33 mg/dL (0.2-1.3); CALCIUM 8.6 mg/dL (8.5-10.1); CREATININE - SERUM 2.3 mg/dL (0.6-1.3); MAGNESIUM - SERUM 1.8 mg/dL (1.8-2.4); PROTEIN - SERUM 6.2 g/dL (6.4-8.2)
[2019-10-02 08:22] LABS: BASOPHILS 0.3 % (0-2); EOSINOPHILS 1.7 % (0-7); HEMATOCRIT 35.6 % (42.0-54.0); HEMOGLOBIN 11.7 g/dL (13.5-17.5); IMMATURE GRANULOCYTES 0.4 % (0-5); LYMPHOCYTES 8.3 % (15-50); MCH 28.5 pg (26.0-34.0); MCHC 32.9 g/dL (31.0-37.0); MCV 86.8 fL (80.0-100.0); MEAN PLATELET VOLUME 9.1 fL (7.4-10.4); MONOCYTES 7.2 % (2-11); NEUTROPHILS 82.1 % (40-80); PLATELET COUNT 260 10x3/uL (130-400); RDW 14.4 % (11.5-14.5); WBC 10.6 10x3/uL (4.8-10.8)
--- NOTE | 2019-10-02 08:26 | NUR ---
RESTING IN BED, NO DISTRESS NOTED, EYES CLOSED, SKIN WARM AND DRY, RIGHT SMALL TOE WITH WOUND, NO S/S OF INFECTION, CONT TO MONITOR PAIN AND SUGARS
[2019-10-02 09:05] VITALS: BP 160/64
[2019-10-02 12:34] VITALS: BP 167/69
[2019-10-02 13:18] VITALS: Ht 180.3 cm; Wt 126.6 kg
--- NOTE | 2019-10-02 15:25 | NUR ---
OT NOTE: PT ASLEEP IN BED ; COMPLETELY NAKED ; DIFFICULT TO AROUSE. PT STATED THAT HE WAS NOT HAVING DIFFICULTY GETTING UP OR AMBULATING PRIOR TO ADMISSION. PT KICKED THE COVER OFF OF HIS FOOT TO SHOW THE SMALL CUT ON VENTRAL PORTION OF SMALL TOE. PT TOO LETHARGIC TO GET UP.. CHECKED ON PT SEVERAL TIMES TODAY AND EACH TIME HE WAS ASLEEP. AGAIN, PT STATES THAT HE IS NOT HAVING DIFFICULTY WALKING OR DRESSING, THOUGH IT WAS NOT OBSERVED. IF PT DEMONSTRATES INCREASED DIFFICULTY WITH ADLS, PLEASE RECONSULT. OLIVIA ALMANZA, OTR/L [phone]
[2019-10-02 18:01] VITALS: BP 131/79
[2019-10-02 20:00] VITALS: BP 183/93
[2019-10-03] VITALS: BP 154/67
[2019-10-03 04:00] VITALS: BP 168/79
[2019-10-03 05:37] LABS: BASOPHILS 0.3 % (0-2); EOSINOPHILS 3.8 % (0-7); HEMATOCRIT 33.6 % (42.0-54.0); HEMOGLOBIN 10.9 g/dL (13.5-17.5); IMMATURE GRANULOCYTES 0.5 % (0-5); LYMPHOCYTES 15.4 % (15-50); MCH 28.3 pg (26.0-34.0); MCHC 32.4 g/dL (31.0-37.0); MCV 87.3 fL (80.0-100.0); MEAN PLATELET VOLUME 8.9 fL (7.4-10.4); MONOCYTES 15.8 % (2-11); NEUTROPHILS 64.2 % (40-80); PLATELET COUNT 252 10x3/uL (130-400); RBC 3.85 10x6/uL (4.20-6.10); RDW 14.6 % (11.5-14.5); WBC 9.5 10x3/uL (4.8-10.8)
[2019-10-03 06:21] LABS: ALBUMIN 2.4 g/dL (3.4-5.0); ANION GAP 5.3 mmol/L (8-16); BILIRUBIN - TOTAL 0.24 mg/dL (0.2-1.3); CALCIUM 8.5 mg/dL (8.5-10.1); CARBON DIOXIDE 34.3 mmol/L (21.0-32.0); CREATININE - SERUM 2.3 mg/dL (0.6-1.3); PHOSPHOROUS 3.8 mg/dL (2.5-4.9); POTASSIUM - SERUM 3.6 mmol/L (3.5-5.1); PROTEIN - SERUM 6.5 g/dL (6.4-8.2)
[2019-10-03 08:00] VITALS: BP 168/82
--- NOTE | 2019-10-03 08:23 | NUR ---
PT ALERT AND ORIENTED X4 UPON ENTERING. UPRIGHT IN BED, MOVED TO BEDSIDE TO TAKE MEDICATION, BREAKFAST ALSO BROUGHT AT THIS TIME. PT HAS AN IV TO THE RIGHT FOREARM WITH NORMAL SALINE @50, ROOM AIR AND IS UP ADLIB. MORNING MEDICATION GIVEN AT THIS TIME, NO DIFFICULTIES. REQUESTED PAIN MEDICATION, INFORMED PT IT IS NOT TIME YET. DENIES ANY OTHER NEEDS. WILL CONTINUE TO MONITOR.
--- NOTE | 2019-10-03 08:29 | NUR ---
ADMINISTERED 4 UNITS INSULIN PER SLIDING SCALE FOR SUGAR OF 165.
--- NOTE | 2019-10-03 09:43 | NUR ---
ADMINISTERED PRN MORPHINE FOR PAIN 8/10 IN THE SMALL TOE ON THE RIGHT FOOT. TOLERATED WELL. DENIES ANY OTHER NEEDS. WILL REASSESS AND CONTINUE TO MONITOR.
--- NOTE | 2019-10-03 11:42 | NUR ---
HUNG IV ANTIBIOTICS, TOLERATING WELL.
--- NOTE | 2019-10-03 11:55 | NUR ---
ASSESSMENT PERFORMED AT THIS TIME. ASSESSED BLOOD SUGAR, 139. NO INSULIN NEEDED PER SLIDING SCALE.
[2019-10-03 12:01] VITALS: BP 159/63
--- NOTE | 2019-10-03 15:37 | NUR ---
HUNG NEW BAG OF IV ANTIBIOTICS. PT IS COMPLAINING OF PAIN THE SMALL TOE ON THE RIGHT FOOT, NEW BANDAGE HAS BEEN APPLIED, CLEAN/DRY/INTACT. RESTING IN BED. WILL PROVIDE PAIN MEDICATION WHEN APPROPRIATE. DENIES ANY OTHER NEEDS. WILL CONTINUE TO MONITOR.
--- NOTE | 2019-10-03 15:46 | NUR ---
ADMINISTERED PRN MORPHINE FOR PAIN 8/10 IN THE SMALL TOE ON THE RIGHT FOOT. TOELRATED WELL. WILL CONTINUE TO MONITOR.
--- NOTE | 2019-10-03 15:53 | NUR ---
BLOOD SUGAR 166, ADMINISTERED 4 UNITS INSULIN PER SLIDING SCALE.
[2019-10-03 17:03] VITALS: BP 161/79
--- NOTE | 2019-10-03 17:38 | NUR ---
ADMINISTERED PRN TYLENOL FOR SMALL TOE PAIN ON THE RIGHT FOOT, 10/10. UPRIGHT ON BEDSIDE EATING DINNER. DENIES ANY OTHER NEEDS AT THIS TIME. BED IN THE LOWET POSITION, BED RAILS X2, CALL LIGHT WITHIN REACH. WILL CONTINUE TO MONITOR.
--- NOTE | 2019-10-03 18:08 | NUR ---
SPIKED VANC. RESTING COMFORTABLY, DENIES ANY NEEDS. WILL CONTINUE TO MONITOR.
--- NOTE | 2019-10-03 19:21 | NUR ---
I have reviewed this patient and I concur with the Shift Assessment completed by the Licensed Practical Nurse today this shift.
[2019-10-03 20:00] VITALS: BP 186/87
--- NOTE | 2019-10-03 20:00 | NUR ---
PATIENT RESTING IN BED WATCHING TV. NO S/S OF ACUTE DISTRESS. NO C/O AT THIS TIME. PATIENT HAS RIGHT FOREARM, NORMAL SALINE @ 100 ML/HR. IV IS PATENT WITHOUT REDNESS, SWELLING, OR TENDERNESS. PATIENT HAS DRESSING ON RIGHT SMALL TOE. DRESSING C/D/I. PATIENT USES URINAL AND IS UP ADLIB. CALL LIGHT WITHIN REACH. WILL CONTINUE TO MONITOR.
[2019-10-04] VITALS: BP 184/84
--- NOTE | 2019-10-04 02:33 | NUR ---
PATIENT PULLED OUT IV WHEN HE WOKE UP CONFUSED. I ATTEMPTED TWO IVS BOTH FAILED. I'M TRYING TO GET ANOTHER NURSE TO GET ONE. CALL LIGHT WITHIN REACH. WILL CONTINUE TO MONITOR.
--- NOTE | 2019-10-04 03:15 | NUR ---
WALDEMAR LUNA NURSE WAS UNABLE TO PLACE IV. ICU WAS CALLED AND THEY SAID THEY WOULD SEND A NURSE TO TRY AND GAIN IV ACCESS. CALL LIGHT WITHIN REACH. WILL COTNINUE TO MONITOR.
--- NOTE | 2019-10-04 04:25 | NUR ---
BURTON FIRE WATCHER GOT AN IV IN LEFT HAND. NORMAL SALINE @ 100 ML/HR RESTARTED. IV IS PATENT WITHOUT REDNESS, SWELLING, OR TENDERNESS. CALL LIGHT WITHIN REACH. WILL CONTINUE TO MONITOR.
--- NOTE | 2019-10-04 04:35 | NUR ---
I have reviewed this patient and I concur with the Shift Assessment completed by the Licensed Practical Nurse today this shift.
[2019-10-04 05:08] LABS: BASOPHILS 0.4 % (0-2); EOSINOPHILS 3.6 % (0-7); HEMATOCRIT 34.5 % (42.0-54.0); HEMOGLOBIN 10.9 g/dL (13.5-17.5); IMMATURE GRANULOCYTES 0.8 % (0-5); LYMPHOCYTES 16.4 % (15-50); MCH 28.1 pg (26.0-34.0); MCHC 31.6 g/dL (31.0-37.0); MCV 88.9 fL (80.0-100.0); MONOCYTES 14.4 % (2-11); NEUTROPHILS 64.4 % (40-80); PLATELET COUNT 244 10x3/uL (130-400); RBC 3.88 10x6/uL (4.20-6.10); RDW 14.7 % (11.5-14.5)
[2019-10-04 05:39] LABS: ALBUMIN 2.3 g/dL (3.4-5.0); BILIRUBIN - TOTAL 0.23 mg/dL (0.2-1.3); CALCIUM 8.3 mg/dL (8.5-10.1); CARBON DIOXIDE 31.8 mmol/L (21.0-32.0); CREATININE - SERUM 2.4 mg/dL (0.6-1.3); PHOSPHOROUS 3.9 mg/dL (2.5-4.9); PROTEIN - SERUM 6.6 g/dL (6.4-8.2)
[2019-10-04 05:48] LABS: ANION GAP 9.4 mmol/L (8-16); POTASSIUM - SERUM 4.2 mmol/L (3.5-5.1)
--- NOTE | 2019-10-04 07:33 | NUR ---
RECEIVED PT FROM ESCALATOR ATTENDANT. UPON ENTERING PT WAS PRONE IN BED WITH EYES CLOSED, BREATHING EVEN AND NON LABORED. AROUSES EASILY TO VOICE. PT HAS AN IV TO THE LEFT HAND WITH NORMAL SALINE @ 100, ROOM AIR, ALERT AND ORIENTED X4. FSBS Q4. PT HAS INCISIONAL WOUND TO THE SMALL TOE ON THE RIGHT FOOT. IT HAS BEEN CLEANED OUT, WAITING TO SEE IF THE COLOR AND BLOOD CIRCULATION RETURNS, IF NOT WILL AMPUTATE. PT IS ELECTROLYTE PROTOCOL ALL, WNL TODAY. RESTING COMFORTABLY. BED IN LOWEST POSITION, BED RAILS X2, CALL LIGHT WITHIN REACH. WILL CONTINUE TO MONITOR.
[2019-10-04 08:00] VITALS: BP 148/76
--- NOTE | 2019-10-04 09:11 | NUR ---
PT PRONE UPON ENTERING WITH EYES CLOSED, BREATHING EVEN AND UNLABORED. NO S/S OF DISTRESS NOTED AT THIS TIME. AROUSES EASILY TO VOICE. MORNING MEDICATION ADMINISTERED AT THIS TIME. PRN MORPHINE ADMINISTERED FOR PAIN IN SMALL TOE ON RIGHT FOOT, TOLERATED WELL. PT IS UPRIGHT ON BEDSIDE UPON LEAVING. 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 PT DENIES ANY NEEDS. BED IN LOWEST POSITION, BED RAILS X2, CALL LIGHT WITHIN REACH. WILL CONTINUE TO MONITOR.
[2019-10-04 11:00] VITALS: BP 157/75
--- NOTE | 2019-10-04 12:15 | NUR ---
HUNG IV ANTIBIOTICS, TOLERATING WELL. ASSESSED BLOOD SUGAR, 152. 4 UNITS INSULIN PER SLIDING SCALE. 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 RESTING IN BED, REQUESTED PAIN MEDICATION. UNABLE TO ADMINSTER UNTIL 1300, INFORMED PT. DENIES ANY NEEDS. WILL CONTINUE TO MONITOR.
--- NOTE | 2019-10-04 13:40 | NUR ---
ADMINISTERED PRN MORPHINE AT THIS TIME FOR PAIN IN TOE 11/24. RETAPED IV, TOLERATED WELL. RESTING COMFORTABLY IN BED. DENIES ANY NEEDS. BED IN LOWEST POSITION, BED RAILS X2, CALL LIGHT WITHIN REACH. WILL CONTINUE TO MONITOR.
--- NOTE | 2019-10-04 14:07 | NUR ---
Nutrition follow-up: Diet: ADA consistent CHO PO intake 100% of last 3 meals Labs reviewed Wt: 279# Pt with possible amputation of toe PO intake good at this time. Glucose with poor to fair control. RDN following.
--- NOTE | 2019-10-04 15:23 | NUR ---
I have reviewed this patient and I concur with the Shift Assessment completed by the Licensed Practical Nurse today this shift.
--- NOTE | 2019-10-04 17:13 | NUR ---
HUNG IV ANTIBIOTICS. ASSESSED BLOOD SUGAR, 253. 10 UNITS INSULIN PER SLIDING SCALE. PT RESTING COMFORTABLY IN BED, DENIES ANY NEEDS. WILL CONTINUE TO MONITOR.
--- NOTE | 2019-10-04 18:13 | NUR ---
PT RESTING COMFORTABLY WITH EYES CLOSED, BREATHING EVEN AND UNLABORED. NO S/S OF DISTRESS NOTED AT THIS TIME. IV ANTIBIOTICS HUNG. BED IN LOWEST POSITION, BED RAILS X2, CALL LIGHT WITHIN REACH. WILL CONTINUE TO MONITOR.
[2019-10-04 20:00] VITALS: BP 183/92
--- NOTE | 2019-10-04 20:00 | NUR ---
PATIENT RESTING IN BED WITH EYES CLOSED. NO S/S OF ACUTE DISTRESS. NO C/O AT THIS TIME. PATIENT HAS LEFT HAND NORMAL SALINE @ 100 ML/HR. IV IS PATENT WITHOUT REDNESS, SWELLING, OR TENDERNESS. PATIENT IS ON CONTACT ISOLATION FOR STAFF IN RIGHT FIFTH DIGIT. PATIENT'S RIGHT FIFTH DIGIT IS WRAPPED, DRESSING C/D/I. PATIENT IS UP ADLIB TO THE BATHROOM. CALL LIGHT WITHIN REACH. WILL CONTINUE TO MONITOR.
--- NOTE | 2019-10-05 02:33 | NUR ---
I have reviewed this patient and I concur with the Shift Assessment completed by the Licensed Practical Nurse today this shift.
[2019-10-05 04:00] VITALS: BP 150/68
--- NOTE | 2019-10-05 06:30 | NUR ---
PATIENT TOOK OUT IV IN LEFT HAND. WILL ATTEMPT TO PLACE ANOTHER. CALL LIGHT WITHIN REACH. WILL CONTINUE TO MONITOR.
[2019-10-05 08:38] VITALS: BP 137/70
--- NOTE | 2019-10-05 08:38 | NUR ---
NOTIFIED RODERICK WILSON OF PLATELETS 38. NO NEW ORDERS AT THIS TIME.
[2019-10-05 08:40] LABS: BASOPHILS 0.3 % (0-2); EOSINOPHILS 3.2 % (0-7); HEMATOCRIT 31.8 % (42.0-54.0); IMMATURE GRANULOCYTES 0.5 % (0-5); LYMPHOCYTES 17.4 % (15-50); MCHC 31.4 g/dL (31.0-37.0); MCV 89.1 fL (80.0-100.0); MEAN PLATELET VOLUME 8.9 fL (7.4-10.4); MONOCYTES 13.8 % (2-11); NEUTROPHILS 64.8 % (40-80); PLATELET COUNT 201 10x3/uL (130-400); RBC 3.57 10x6/uL (4.20-6.10); RDW 14.6 % (11.5-14.5); WBC 8.8 10x3/uL (4.8-10.8)
[2019-10-05 08:55] LABS: ALBUMIN 2.3 g/dL (3.4-5.0); ANION GAP 6.7 mmol/L (8-16); BILIRUBIN - TOTAL 0.31 mg/dL (0.2-1.3); CALCIUM 8.2 mg/dL (8.5-10.1); CREATININE - SERUM 2.3 mg/dL (0.6-1.3); MAGNESIUM - SERUM 2.1 mg/dL (1.8-2.4); PHOSPHOROUS 3.5 mg/dL (2.5-4.9); POTASSIUM - SERUM 3.7 mmol/L (3.5-5.1); PROTEIN - SERUM 6.6 g/dL (6.4-8.2); VANCOMYCIN - RANDOM 25.3 ug/mL (10.0-20.0)
--- NOTE | 2019-10-05 11:30 | NUR ---
DR. FLORES IN PATIENT ROOM AT THIS TIME WITH NURSE, DOING PINKIE TOE AMPUTATION. PATIENT TOLERATED WITH SMALL AMOUNT OF PAIN. CALL LIGHT WITHIN REACH.
[2019-10-05] MEDS ORDERED: BACTRIM DS TAB1 EAC1 PO (12:26)
[2019-10-05] MEDS ORDERED: HYDROCODON-ACE1 EAC7 PO (12:57)
[2019-10-05 13:07] VITALS: BP 185/76
[2019-10-05] MEDS ORDERED: CIPRO500 MG PO (14:00)
--- NOTE | 2019-10-05 14:30 | NUR ---
PATIENT IN BED RESTING QT THIS TIME. NO COMPLAINTS OR SIGNS OF DISTRESS. CALL LIGHT WITHIN REACH.
--- NOTE | 2019-10-05 15:50 | NUR ---
PATIENT RECIEVED DC INSTRUCTIONS. VERBALIZED UNDERSTANDING. PRESCRIPTIONS ALSO GIVEN TO PATIENT. EXPLAINED TO SEE DR. FLORES ON MONDAY AND TO CALL FOR AN APPOINTMENT. VERBALIZED UNDERSTANDING. FRIEND AT SIDE. ESCORTED PATIENT DOWN TO PRIVATE VEHICLE WITH PERSONAL BELONGINGS.
--- NOTE | 2019-10-06 22:23 | MORECARE ---
CASE MANAGEMENT DISCHARGE SUMMARY PATIENT: MYRIAM VALVERDE UNIT: [id number] ADM DATE: 10/01/19 AGE: 59 : 60 SEX: M ROOM/BED: D.2231 AUTHOR: SHEYLA MYA PHYSICIAN: REFERRING PHYSICIAN: LISA YU MD DATE OF SERVICE: 10/06/19 Discharge Plan Patient Name: MYRIAM VALVERDE [facility] [facility] 1960 Planned Disposition: Home Anticipated Discharge Date: Discharge Date: 10/05/2019 Expected LOS: Initial Reviewer: [email or web address] Initial Review Date: 10/01/2019 Generated: 10/06/19 11:22 pm Patient Name: MYRIAM VALVERDE Page [id number] at 2223 All edits/amendments must be made on the electronic document DICTATION DATE: 10/06/192221 WINDOWS PHONE DEVELOPER: TRISH 10/06/192221 RPT#: [id number] DC DATE:10/05/19 STATUS: DIS IN [facility] [address] [place] [address] END OF REPORT
--- NOTE | 2019-10-06 22:30 | MORECARE ---
CASE MANAGEMENT DISCHARGE SUMMARY PATIENT: MYRIAM VALVERDE UNIT: [id number] ADM DATE: 10/01/19 AGE: 59 : 60 SEX: M ROOM/BED: D.2231 AUTHOR: LALO,DOC PHYSICIAN: REFERRING PHYSICIAN: LISA YU MD DATE OF SERVICE: 10/06/19 Discharge Plan Patient Name: MYRIAM VALVERDE Facility: [facility]:[place] : 1960 Planned Disposition: Home Anticipated Discharge Date: Discharge Date: 10/05/2019 Expected LOS: Initial Reviewer: [email or web address] Initial Review Date: 10/01/2019 Generated: 10/06/19 11:30 pm Comments DCP- Discharge Planning Updated by [email or web address]: Sailaja Gaxiola on 10/06/19 9:[address] LATE ENTRY 10/05/19 Patient Name: MYRIAM VALVERDE Admission Status: ER Accout number: [id number] Admission Date: 10-01-2019 : 1960 Admission Diagnosis:PAIN IN RIGHT FOOT Attending: LISA YU Current LOS: 4 Anticipated DC Date: Planned Disposition: Home Primary Insurance: [facility] [employer] Discharge Planning Comments: CM met with patient to complete initial dc planning assessment. CM educated patient on the CM role and verbal consent given by patient to complete assessment. Patient lives at [facility] . Patient is independent. At discharge patient plans to return home and feels this is a safe discharge. CM discussed availability of home health, rehab services, and medical equipment. Patient will have facility to transport home. Patient signed declination for Home Health. Patient denied known discharge needs at this time. D/C IMM signed 10/05/19 @ 1445.CM will continue to follow and will assist as needed with dc plans/needs. Channel Marketing Program Manager: Sailaja Gaxiola DCPIA - Discharge Planning Initial Assessment Updated by [email or web address]: Sailaja Gaxiola on 10/06/19 10:25 pm * Is the patient Alert and Oriented? Yes * How many steps to enter\exit or inside your home? 2-3 * PCP DAVID * Pharmacy [facility] * Preadmission [facility] * Facility Name [facility] * ADLs Independent * Equipment None * List name and contact numbers for known caregivers / representatives who currently or will assist patient after discharge: NONE DIAL BRUSHER - [phone] * Verbal permission to speak to the caregivers and representatives has been obtained from the patient. N/A * Community resources currently utilized None * Additional services required to return to the preadmission environment? No * Can the patient safely return to the preadmission environment? Yes * Has this patient been hospitalized within the prior 30 days at any hospital? No Last DP export: 10/06/19 9:23 p Patient Name: MYRIAM VALVERDE Page [id number] at 2230 All edits/amendments must be made on the electronic document DICTATION DATE: 10/06/192229 CUSTOMER CARE ASSOCIATE: TRISH 10/06/192229 RPT#: [id number] DC DATE:10/05/19 STATUS: DIS IN [facility] [address] [place] [address] END OF REPORT
== END 2019-10-05 16:00 | disposition home or self-care (01) | DRG 854 ==
LOC: D.ER 16:20 → D.MS 19:08
PROVIDERS: Family Medicine; Internal Medicine; ADMIT Family Medicine; ATTEND Family Medicine
PROC: 0Y6X0Z0 Detachment at Right 5th Toe, Complete, Open Approach (ICD-10-PCS; principal; 2019-10-05)
DX: A41.9 Sepsis, unspecified organism (principal); N17.9 Acute kidney failure, unspecified; F17.203 Nicotine dependence unspecified, with withdrawal; E87.1 Hypo-osmolality and hyponatremia; Z68.42 Body mass index [BMI] 45.0-49.9, adult; J44.1 Chronic obstructive pulmonary disease with (acute) exacerbation; N18.4 Chronic kidney disease, stage 4 (severe); L03.115 Cellulitis of right lower limb; E11.65 Type 2 diabetes mellitus with hyperglycemia; F12.90 Cannabis use, unspecified, uncomplicated; D63.1 Anemia in chronic kidney disease; E11.22 Type 2 diabetes mellitus with diabetic chronic kidney disease; I12.9 Hypertensive chronic kidney disease with stage 1 through stage 4 chronic kidney disease, or unspecified chronic kidney disease; E66.01 Morbid (severe) obesity due to excess calories; E11.628 Type 2 diabetes mellitus with other skin complications; M10.9 Gout, unspecified